=== PATIENT | female | born 1955 | race Caucasian/White ===

== ENCOUNTER 2019-07-06 08:38 | Emergency (ER) | payer OTHER ==
[~2019-07-06] VITALS: Ht 172.7 cm; Wt 82.1 kg
--- OUTSIDE RECORDS SUMMARY | ~2019-07-06 | XMS | Encounter Summary ---
Demographics + + + | Address | [address] | | | [place] [address] | + + + | Home Phone | | + + + | Preferred Language | Unknown | + + + | Marital Status | Unknown | + + + | Yazdanism Affiliation | Unknown | + + + | Race | Unknown | + + + | Ethnic Group | Unknown | + + + Author + + + | Author | [facility] | | | and [place] | + + + | Organization | [facility] | | | and [place] | + + + | Address | Unknown | + + + | Phone | Unavailable | + + + Support + + +---------+ + | Name | Relationship | Address | Phone | + + +---------+ + | Juan Miguel Engum | ECON | Unknown | | + + +---------+ + | Sandeep Sauljennyfer | ECON | Unknown | | + + +---------+ + Care Team Providers + +------+ + | Care Inclusion Specialist Name | Role | Phone | + +------+ + PCP | Unavailable | + +------+ + Encounter Details +--------+ + + + + | Date | Type | Department | Care Team | Description | +--------+ + + + + | 12/27/ | [facility] | [facility] | | | | 1998 | Encounter | MED CTR GENERIC OP | | | | | | CONV DEPT [address] | | | | | | [place], | | | | | | [place] [address] | | | | | | [phone] | | | +--------+ + + + + Social History + +-------+ +--------+------+ | Tobacco Use | Types | Packs/Day | Years | Date | | | | | Used | | + +-------+ +--------+------+ | Never Assessed | | | | | + +-------+ +--------+------+ + + + | Sex Assigned at | Date Recorded | | | | + + + | Not on file | | + + + + + + + | Job Start Date | Occupation | Industry | + + + + | Not on file | Not on file | Not on file | + + + + + + + + | Travel History | Travel Start | Travel End | + + + + + + | No recent travel history available. | + + documented as of this encounter Plan of Treatment Not on filedocumented as of this encounter Visit Diagnoses Not on filedocumented in this encounter"
--- OUTSIDE RECORDS SUMMARY | ~2019-07-06 | XMS | Encounter Summary ---
Demographics + + + | Address | [address] | | | [place] [address] | + + + | Home Phone | | + + + | Preferred Language | Unknown | + + + | Marital Status | | + + + | Holiness Affiliation | Unknown | + + + | Race | White | + + + | Ethnic Group | Not or | + + + Author + + + | Author | [facility] | + + + | Organization | [facility] | + + + | Address | Unknown | + + + | Phone | Unavailable | + + + Support + + +---------+ + | Name | Relationship | Address | Phone | + + +---------+ + | Juan Miguel Engum | ECON | Unknown | | + + +---------+ + Care Team Providers + +------+ + | Care 4 H Youth Development Specialist Name | Role | Phone | + +------+ + PCP | Unavailable | + +------+ + Encounter Details +--------+ + + + + | Date | Type | Department | Care Team | Description | +--------+ + + + + | 12/06/ | ED Progress | [facility] | Addendum, Ed | ED Progress Note | | 2006 | | MEDICINE | Teaching | | | | Note-Transc | | | | | | ribed | | | | +--------+ + + + [...]
--- OUTSIDE RECORDS SUMMARY | ~2019-07-06 | XMS | Clinical Summary ---
Demographics + + + | Address | [address] | | | [place] [address] | + + + | Home Phone | | + + + | Preferred Language | Unknown | + + + | Marital Status | Unknown | + + + | Spiritism Affiliation | Unknown | + + + | Race | Unknown | + + + | Ethnic Group | Unknown | + + + Author + + + | Author | [facility] | | | and [place] | + + + | Organization | [facility] | | | [...] Team Providers + +------+ + | Care Contour Sander Name | Role | Phone | + +------+ + | Blanca Dyer PA-C | PCP | | + +------+ + Allergies Not on File Medications + + + +---------+------+------+-------+ | Medication | Sig | Dispensed | Refills | Star | End | Statu | | | | | | t | Date | s | | | | | | Date | | | + + + +---------+------+------+-------+ | Calcium | Take 600 mg by mouth | | 0 | 12/2 | | Activ | | Carb-Cholecalciferol | daily. | | | 0/20 | | e | | (CALCIUM + D3 PO) | | | | 16 | | | + + + +---------+------+------+-------+ | TURMERIC CURCUMIN | Take 1,000 mg by | | 0 | 12/2 | | Activ | | PO | mouth daily. | | | 0/20 | | e | | | | | | 16 | | | + + + +---------+------+------+-------+ | Multiple | Take 1 tablet by | | 0 | 12/2 | | Activ | | Vitamins-Minerals | mouth daily. | | | 0/20 | | e | | (RA CENTRAL-TRAY | | | | 16 | | | | SENIOR PO) | | | | | | | + + + +---------+------+------+-------+ | fish oil 1,000 mg | Take 300 mg by mouth | | 0 | 12/2 | | Activ | | capsule | 2 (two) times | | | 0/20 | | e | | | daily. | | | 16 | | | + + + +---------+------+------+-------+ | aspirin 81 MG | Take 81 mg by mouth | | 0 | 12/2 | | Activ | | tablet | daily. | | | 0/20 | | e | | | | | | 16 | | | + + + +---------+------+------+-------+ | loratadine | Take 10 mg by mouth | | 0 | 12/2 | | Activ | | (CLARITIN) 10 mg | daily. | | | 0/20 | | e | | tablet | | | | 16 | | | + + + +---------+------+------+-------+ | Cholecalciferol | Take 1 tablet by | | 0 | 12/2 | | Activ | | (VITAMIN D-3) 2000 | mouth daily. | | | 0/20 | | e | | units CAPS | | | | 16 | | | + + + +---------+------+------+-------+ Active Problems + + + | Problem [...] + | Father | | | | + +------+ + + | Mother | | | heart attack | | | | (Age | | | | | 86) | | + +------+ + + | Mother | | | | + +------+ + + | [...] recent travel history available. | + + Last Filed Vital Signs + + + + + | Vital Sign | Reading | Time Taken | Comments | + + + + + | Blood Pressure | 112/60 | 05/19/2018 3:58 PM | | | | | PST | | + + + + + | Pulse | 79 | 05/19/2018 3:58 PM | | | | | PST | | + + + + + | Temperature | - | - | | + + + + + | Respiratory Rate | - | - | | + + + + + | Oxygen Saturation | - | - | | + + + + + | Inhaled Oxygen | - | - | | | Concentration | | | | + + + + + | Weight | 81.6 kg (179 lb 12.8 | 05/19/2018 3:58 PM | | | | oz) | PST | | + + + + + | Height | 171.5 cm (5' 7.5") | 05/19/2018 3:58 PM | | | | | PST | | + + + + + | Body Mass Index | 27.75 | 05/19/2018 3:58 PM | | | | | PST | | + + + + + Plan of Treatment + + + + + | Health Maintenance | Due Date | Last Done | Comments | + + + + + | Hepatitis C | | | | | Screening | 7 | | | + + + + + | Vaccine: | | | | | Dtap/Tdap/Td (1 - | 8 | | | | Tdap) | | | | + + + + + | Cervical Cancer | | | | | Screening (Pap) | 7 | | | + + + + + | Colorectal Cancer | | | | | Screening | 7 | | | | (Colonoscopy) | | | | + + + + + | Vaccine: Zoster (1 | | | | | of 2) | 7 | | | + + + + + | Breast Cancer | | | | | Screening | 2 | | | + + + + + | Vaccine: Influenza | | | | | (#1) | 9 | | | + + + + + Results Not on filefrom Last 3 Months
--- OUTSIDE RECORDS SUMMARY | ~2019-07-06 | XMS | Clinical Summary ---
Demographics + + + | Address | [address] | | | [place] [address] | + + + | Home Phone | | + + + | Preferred Language | Unknown | + + + | Marital Status | Unknown | + + + | Cheondoism Affiliation | Unknown | + + + | Race | Unknown | + + + | Ethnic Group | Unknown | + + + Author + + + | Author | [facility] | | | and [place] | + + + | Organization | [facility] | | [...] Team Providers + +------+ + | Care Soft Hat Binder Name | Role | Phone | + [...]
--- OUTSIDE RECORDS SUMMARY | ~2019-07-06 | XMS | Encounter Summary ---
Demographics + + + | Address | [address] | | | [place] [address] | + + + | Home Phone | | + + + | Preferred Language | Unknown | + + + | Marital Status | Unknown | + + + | Amish Affiliation | Unknown | + + + | Race | Unknown | + + + | Ethnic Group | Unknown | + + + Author + + + | Author | [facility] | | | and [place] | + + + | Organization | [facility] | | | and [...] + +---------+ + | Sandeep Macias | PATRICIA | Unknown | | + + +---------+ + Care Team Providers + +------+ + | Care Production Support Engineer Name | Role | Phone | + +------+ + | Blanca Dyer PA-C | PCP | | + +------+ + Encounter Details +--------+ + + + + | Date | Type | Department | Care Team | Description | +--------+ + + + + | 04/23/ | Orders Only | [facility] | Blanca Dyer, | | | 2016 | | CONVERSION [address] | PA-C [address] | | | | | [address] | [address] [place], | | | | | [place], [place] | [place] [address] | | | | | [address] | [phone] | | | | | [phone] | | | +--------+ + + + [...] Not on filedocumented as of this encounter Procedures + +--------+ + + + | Procedure Name | Priori | Date/Time | Associated Diagnosis | Comments | | | ty | | | | + +--------+ + + + | ECHO INTERPRETATION | Routin | 04/23/2016 | | Results for this | | OF OUTSIDE FILMS | e | 3:03 PM | | procedure are in the | | | | PDT | | results section. | + +--------+ + + + documented in this encounter Results ECHO Interpretation of Outside Films (04/23/2016 3:03 PM PDT) + + | Specimen | + + | | + + + + + | Impressions | Performed At | + + + | 1. See Dictation. TDS. 2. LV dimensions and systolic function | | | grossly NML, Grade 1 diastolic abnormality, LVEF 60-65%. LA/RA/RV | | | grossly NML. 3. Aortic, Mitral, and Tricuspid valves grossly NML, | | | Pulmonic valve not seen well. No /AI. Trace MR, trace TR. 4. | | | No Pericardial effusion. 5. IVC grossly NML, est systolic PAP | | | 18-23mmHg. | | + + + + + + | Narrative | Performed At | + + + | Patient Name: Isabel Dunbar Date of : 1955 | | | Performing Physician: Gautam Faulkner DO | | | | | | INDICATIONS palpitations CONCLUSIONS | | | 1. See Dictation. TDS. 2. LV dimensions and systolic function | | | grossly NML, Grade 1 diastolic abnormality, LVEF 60-65%. LA/RA/RV | | | grossly NML. 3. Aortic, Mitral, and Tricuspid valves grossly NML, | | | Pulmonic valve not seen well. No /AI. Trace MR, trace TR. 4. | | | No Pericardial effusion. 5. IVC grossly NML, est systolic PAP | | | 18-23mmHg. FINDINGS -------- ECG rhythm: Sinus rhythm. Study: | | | This was a technically difficult study with suboptimal views. Left | | | Ventricle: Overall left ventricular systolic function is normal with, | | | an EF between 60 - 65 %. Left Ventricle: The left ventricle cavity | | | size is normal. Left Ventricle: Left ventricular wall thickness is | | | normal. Left Ventricle: The diastolic filling pattern indicates | | | impaired relaxation consistent with mild dysfunction (Grade I). Right | | | Ventricle: The right ventricle is normal in size. Right Ventricle: | | | The right ventricular systolic function is normal. Left Atrium: The | | | left atrium is normal in size. Right Atrium: The right atrium is | | | normal in size. Aortic Valve: The aortic valve is trileaflet and | | | appears structurally normal. Aortic Valve: There is no evidence of | | | aortic regurgitation. Aortic Valve: There is no evidence of aortic | | | stenosis. Mitral Valve: The mitral valve is normal. Mitral Valve: | | | There is trace mitral regurgitation. Tricuspid Valve: The tricuspid | | | valve appears structurally normal. Tricuspid Valve: Trace tricuspid | | | regurgitation present. Pulmonic Valve: The pulmonic valve was not | | | well visualized. Pericardium: There is no pericardial effusion. | | | IVC/Hepatic Veins: The IVC is normal size (1.5-2.5cm) and collapses | | | >50% with sniff, consistent with central venous pressures of 5-10mmHg. | | | MEASUREMENTS Night Nurse: MARIBELL Authenticated | | | by: Gautam Faulkner DO Report Date/Time: -- | | + + + + + | Procedure Note | + + | Michael Jenkins Conversion - 02/10/2019 10:39 PM PDT Patient Name: Tim Dunbar of | | : 1955 Performing Physician: Gautam Faulkner | | DO INDICATIONS p | | alpitations CONCLUSIONS 1. See Dictation. TDS. 2. LV dimensions and systolic | | function grossly NML, Grade 1 diastolic abnormality, LVEF 60-65%. LA/RA/RV grossly NML. | | 3. Aortic, Mitral, and Tricuspid valves grossly NML, Pulmonic valve not seen well. No | | /AI. Trace MR, trace TR. 4. No Pericardial effusion. 5. IVC grossly NML, est systolic | | PAP 18-23mmHg. FINDINGS--------ECG rhythm: Sinus rhythm.Study: This was a technically | | difficult study with suboptimal views.Left Ventricle: Overall left ventricular systolic | | function is normal with, an EF between 60 - 65 %.Left Ventricle: The left ventricle | | cavity size is normal.Left Ventricle: Left ventricular wall thickness is normal.Left | | Ventricle: The diastolic filling pattern indicates impaired relaxation consistent with | | mild dysfunction (Grade I).Right Ventricle: The right ventricle is normal in size.Right | | Ventricle: The right ventricular systolic function is normal.Left Atrium: The left | | atrium is normal in size.Right Atrium: The right atrium is normal in size.Aortic Valve: | | The aortic valve is trileaflet and appears structurally normal.Aortic Valve: There is no | | evidence of aortic regurgitation.Aortic Valve: There is no evidence of aortic | | stenosis.Mitral Valve: The mitral valve is normal.Mitral Valve: There is trace mitral | | regurgitation.Tricuspid Valve: The tricuspid valve appears structurally normal.Tricuspid | | Valve: Trace tricuspid regurgitation present.Pulmonic Valve: The pulmonic valve was not | | well visualized.Pericardium: There is no pericardial effusion.IVC/Hepatic Veins: The | | IVC is normal size (1.5-2.5cm) and collapses >50% with sniff, consistent with central | | venous pressures of 5-10mmHg. MEASUREMENTS Night Nurse: NINOSKAuthenticated by: | | Gautam Davila Date/Time: -- IMPRESSION: 1. See Dictation. TDS. 2. LV | | dimensions and systolic function grossly NML, Grade 1 diastolic abnormality, LVEF | | 60-65%. LA/RA/RV grossly NML. 3. Aortic, Mitral, and Tricuspid valves grossly NML, | | Pulmonic valve not seen well. No /AI. Trace MR, trace TR. 4. No Pericardial | | effusion. 5. IVC grossly NML, est systolic PAP 18-23mmHg. | |Left Atrium: The left atrium is normal in size. | |Right Atrium: The right atrium is normal in size. | |Aortic Valve: The aortic valve is trileaflet and appears structurally normal. | |Aortic Valve: There is no evidence of aortic regurgitation. | |Aortic Valve: There is no evidence of aortic stenosis. | |Mitral Valve: The mitral valve is normal. | |Mitral Valve: There is trace mitral regurgitation. | |Tricuspid Valve: The tricuspid valve appears structurally normal. | |Tricuspid Valve: Trace tricuspid regurgitation present. | |Pulmonic Valve: The pulmonic valve was not well visualized. | |Pericardium: There is no pericardial effusion. | |IVC/Hepatic Veins: The IVC is normal size (1.5-2.5cm) and collapses >50% with sniff, consis tent with central venous pressures of 5-10mmHg. | | | |MEASUREMENTS | | | | | |Night Nurse: | |Authenticated by: Gautam Faulkner DO | |Report Date/Time: -- | | | |IMPRESSION: | |1. See Dictation. TDS. 2. LV dimensions and systolic function grossly NML, Grade 1 diastol ic abnormality, LVEF 60-65%. LA/RA/RV grossly NML. 3. Aortic, Mitral, and Tricuspid valves grossly NML, Pulmonic valve not seen | |well. No /AI. Trace MR, trace | |TR. 4. No Pericardial effusion. 5. IVC grossly NML, est systolic PAP 18-23mmHg. | + + documented in this encounter Visit Diagnoses Not on filedocumented in this encounter"
--- OUTSIDE RECORDS SUMMARY | ~2019-07-06 | XMS | Encounter Summary ---
Demographics + + + | Address | [address] | | | [place] [address] | + + + | Home Phone | | + + + | Preferred Language | Unknown | + + + | Marital Status | | + + + | Sabianism Affiliation | Unknown | + + + | Race | White | + + + | Ethnic Group | Not or | + + + Author + + + | Author | [facility] | + + + | Organization | [facility] | + + + | Address | Unknown | + + + | Phone | Unavailable | + + + Support + + +---------+ + | Name | Relationship | Address | Phone | + + +---------+ + | Juan Miguel Engum | ECON | Unknown | | + + +---------+ + Care Team Providers + +------+ + | Care Regulatory Compliance Officer Name | Role | Phone | + +------+ + PCP | Unavailable | + +------+ + Encounter Details +--------+ + + + + | Date | Type | Department | Care Team | Description | +--------+ + + + + | 11/13/ | Hospital | LAB SURGICAL | | | | 2010 | Encounter | PATHOLOGY [address] | | | | [address] | | | | | | [place], [place] | | | | | | [address] | | | +--------+ + + + [...]
--- OUTSIDE RECORDS SUMMARY | ~2019-07-06 | XMS | Encounter Summary ---
Demographics + + + | Address | [address] | | | [place] [address] | + + + | Home Phone | | + + + | Preferred Language | Unknown | + + + | Marital Status | | + + + | Cheondoism Affiliation | Unknown | + + + | Race | White | + + + | Ethnic Group | Not or | + + + Author + + + | Author | [facility] | + + + | Organization | [facility] | + + + | Address | Unknown | + + + | Phone | Unavailable | + + + Support + + +---------+ + | Name | Relationship | Address | Phone | + + +---------+ + | Juan Miguel Engum | ECON | Unknown | | + + +---------+ + Care Team Providers + +------+ + | Care Integrated Specialist Name | Role | Phone | [...] [address] | | | | | | [place], [place] | | | | | | [phone] | | | +--------+ + + + [...]
--- OUTSIDE RECORDS SUMMARY | ~2019-07-06 | XMS | Encounter Summary ---
Demographics + + + | Address | [address] | | | [place] [address] | + + + | Home Phone | | + + + | Preferred Language | Unknown | + + + | Marital Status | | + + + | Confucianist Affiliation | Unknown | + + + [...] Team Providers + +------+ + | Care Mining Support Worker Name | Role | Phone | + [...]
--- OUTSIDE RECORDS SUMMARY | ~2019-07-06 | XMS | Encounter Summary ---
Demographics + + + | Address | [address] | | | [place] [address] | + + + | Home Phone | | + + + | Preferred Language | Unknown | + + + | Marital Status | | + + + | Hinduism Affiliation | Unknown | + + + | Race | White | + + + | Ethnic Group | Not or | + + + Author + + + | Author | [facility] | + + + | Organization | [facility] | + + + | Address | Unknown | + + + | Phone | Unavailable | + + + Support + + +---------+ + | Name | Relationship | Address | Phone | + + +---------+ + | Juan Miguel Engum | ECON | Unknown | | + + +---------+ + Care Team Providers + +------+ + | Care Skid Wrapper Name | Role | Phone | + +------+ + PCP | Unavailable | + +------+ + Encounter Details +--------+ + + + + | Date | Type | Department | Care Team | Description | +--------+ + + + + | 11/13/ | Results | NON-[facility] | Arnie Baltazar, | | | 2010 | Only | Department | [facility] | | | | | | CLINIC DERMATOLOGY | | | | | | [address] | | | | | | [place] | | | | | | [address] | | | | | | | | +--------+ + + [...] | + +--------+ + + + | DERMATOPATHOLOGY(CON | Routin | 11/13/2010 | | Results for this | | SULT) | e | | | procedure are in the | | | | | | results section. | + +--------+ + + + documented in this encounter Results DERMATOPATHOLOGY(CONSULT) (11/13/2010) + + + + + + | Component | Value | Ref Range | Performed | Pathologist | | | | | At | Signature | + + + + + + | DERMATOPATH | THIS IS AN ADDENDUM | | [facility] | | | (CONSULT) | REPORT SOURCE OF | | DERMATOPATH | | | | SPECIMEN:A CONSULTATION | | OLOGY | | | | CLINICAL | | | | | | DESCRIPTION:Norma, Rt. | | | | | | medial abdomen, 5x3mm | | | | | | pearly kong papule, DF | | | | | | vs. BCC, densecollagen | | | | | | with fibroblast like | | | | | | cells, DF vs. cicatrix.1 | | | | | | outside slide | | | | | | ([id number]) | | | | | | received. Dear | | | | | | Delaney: | | | | | | Thank you for asking | | | | | | us to review Isabel | | | | | | Power's right medial | | | | | | abdomenbiopsy where | | | | | | there is a small, | | | | | | slightly domed papule | | | | | | characterized by | | | | | | aproliferation of cells | | | | | | with spindled nuclei | | | | | | distributed between | | | | | | thickenedcollagen | | | | | | bundles in the upper | | | | | | dermis. Some of the | | | | | | cells contain | | | | | | brownpigment within | | | | | | their cytoplasm. Many of | | | | | | the spindled nuclei are | | | | | | plump andthe fibers are | | | | | | haphazardly arranged. 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 | | | | | | Precise identification | | | | | | of the brown pigment | | | | | | (melanin versus | | | | | | hemosiderin) | | | | | | ischallenging, the | | | | | | differential including | | | | | | BLUE NEVUS also | | | | | | suggested by theclinical | | | | | | presentation ("kong | | | | | | papule") versus an | | | | | | unconventionalDERMATOFIB | | | | | | VIRY. Special stains may | | | | | | be helpful in further | | | | | | distinguishingbetween | | | | | | these conditions where | | | | | | the fibrous | | | | | | proliferation extends to | | | | | | thesurgical margins. | | | | | | Thank you for | | | | | | referring this | | | | | | consultation.1 slide | | | | | | ([id number]) | | | | | | returned to Dr. Baltazar. | | | | | | CRW:emr11/28/10 | | | | | | ADDENDUM:Special | | | | | | stains for melanin | | | | | | (Jose Elias-[place]) stain | | | | | | positive the brown | | | | | | dermalpigment, while | | | | | | special stains for iron | | | | | | / hemosiderin (Perls) | | | | | | are negative.Antibodies | | | | | | to Melan-a stain | | | | | | positive the spindled | | | | | | cells. The findings | | | | | | areconsonant with BLUE | | | | | | NEVUS which extends to | | | | | | the surgical margins. | | | | | | 4 slides and 1 block | | | | | | returned to Dr. Baltazar. | | | | | | CRW:mm12/03/10 | | | | | | My electronic | | | | | | signature indicates that | | | | | | I have personally | | | | | | reviewed alldiagnostic | | | | | | slides, the gross and/or | | | | | | microscopic portion of | | | | | | thisreport and | | | | | | formulated the final | | | | | | diagnosis. | | | | | | Rendering Diagnostician: | | | | | | Hipolito Garcias Jr., | | | | | | | | | | | | TobiasPathologistNamani | | | | | | marycruz Signed 12/03/2010 | | | | | | 3:28PM | | | | + + + + + + + + | Specimen | + + | | + + + + + + + | Performing | Address | City/State/Zipcode | Phone Number | | Organization | | | | + + + + + | [facility] | [address] | [place] [address] | | | DERMATOPATHOLOGY | Neil Morocho | | | + + + + + documented in this encounter Visit Diagnoses Not on filedocumented in this encounter
--- OUTSIDE RECORDS SUMMARY | ~2019-07-06 | XMS | Encounter Summary ---
Demographics + + + | Address | [address] | | | [place] [address] | + + + | Home Phone | | + + + | Preferred Language | Unknown | + + + | Marital Status | | + + + | Gnosticist Affiliation | Unknown | + + + | Race | White | + + + | Ethnic Group | Not or | + + + Author + + + | Author | [facility] | + + + | Organization | [facility] | + + + | Address | Unknown | + + + | Phone | Unavailable | + + + Support + + +---------+ + | Name | Relationship | Address | Phone | + + +---------+ + | Juan Miguel Engum | ECON | Unknown | | + + +---------+ + Care Team Providers + +------+ + | Care Documentation Billing Clerk Name | Role | Phone | + +------+ + PCP | Unavailable | + +------+ + Encounter Details +--------+ + + + + | Date | Type | Department | Care Team | Description | +--------+ + + + + | 05/28/ | Hospital | Dermatopathology | | | | 2017 | Encounter | [address] | | | | | | Mailcode: CH16D | | | | | | [facility] | | | | | | and Healing, | | | | | | [address] | | | | | | [place], [place] | | | | | | [address] | | | | | | [phone] | | | +--------+ + + + [...] | + +--------+ + + + | DERM PATHOLOGY | Routin | 05/28/2017 | Other specified | Results for this | | | e | | disorders of the | procedure are in the | | | | | skin and | results section. | | | | | subcutaneous tissue | | | | | | Non-pressure | | | | | | chronic ulcer of | | | | | | skin of other sites | | | | | | limited to breakdown | | | | | | of skin (HCC) | | | | | | Changes in skin | | | | | | texture | | + +--------+ + + + documented in this encounter Results DERM PATHOLOGY (05/28/2017) + + + + + + | Component | Value | Ref Range | Performed | Pathologist | | | | | At | Signature | + + + + + + | DERMATOPATH | SOURCE OF SPECIMEN:A Lt. | | [facility] | | | OLOGY(WET | anterior scalp vertex, | | DERMATOPATH | | | MNT) | shave biopsy | | OLOGY | | | | CLINICAL | | | | | | DESCRIPTION:6x6mm | | | | | | erythematous excoriated | | | | | | papule; r/o inflamed SK | | | | | | vs other. GROSS | | | | | | DESCRIPTION:Received in | | | | | | formalin is a specimen | | | | | | labeled Isabel Dunbar:A: | | | | | | Specimen is labeled "L | | | | | | anterior scalp vertex" | | | | | | and consists of | | | | | | anirregular shave of | | | | | | popular [id number] | | | | | | skin, [id number]. The | | | | | | surgicalmargin is inked | | | | | | blue; the tissue is | | | | | | bisected, and entirely | | | | | | submitted crow A1. | | | | | | MICROSCOPIC | | | | | | DESCRIPTION:There is | | | | | | crust overlying | | | | | | irregular epidermal | | | | | | hyperplasia, with | | | | | | focalulceration. | | | | | | Beneath, there is | | | | | | fibrosis, and solar | | | | | | elastosis with | | | | | | amoderately dense | | | | | | lymphocytic infiltrate. | | | | | | | | | | | | DIAGNOSIS:EPIDERMAL | | | | | | HYPERPLASIA WITH | | | | | | ULCERATION AND CRUST. | | | | | | NOTE: Secondary | | | | | | changes predominate, | | | | | | suggesting external | | | | | | trauma, with muchof the | | | | | | findings suggestive of | | | | | | lichen simplex | | | | | | chronicus. | | | | | | Traumatizedseborrheic | | | | | | keratosis or solar | | | | | | keratosis is difficult | | | | | | to exclude. | | | | | | Clinicalcorrelation is | | | | | | recommended. | | | | | | KPW:sw06/02/17 My | | | | | | electronic signature | | | | | | indicates that I have | | | | | | personally reviewed | | | | | | alldiagnostic slides, | | | | | | the gross and/or | | | | | | microscopic portion of | | | | | | thisreport and | | | | | | formulated the final | | | | | | diagnosis. | | | | | | Electronically signed | | | | | | by: Chevy Garcias | | | | | | M.TaviaPathologistDate | | | | | | Completed: 06/02/2017 | | | | | | 5:44PM | | | | + + + + + + + + | Specimen | + + | | + + + + + | Narrative | Performed At | + + + | | | + + + + + + + + | Performing | Address | City/State/Zipcode | Phone Number | | Organization | | | | + + + + + | [facility] | Mailcode CH5D, [address] | [place] [address] | | | DERMATOPATHOLOGY | [address] | | | + + + + + documented in this encounter Visit Diagnoses + + | Diagnosis | + + | Other specified disorders of the skin and subcutaneous tissue | + + | 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
--- OUTSIDE RECORDS SUMMARY | ~2019-07-06 | XMS | Encounter Summary ---
Demographics + + + | Address | [address] | | | [place] [address] | + + + | Home Phone | | + + + | Preferred Language | Unknown | + + + | Marital Status | | + + + | Sikh Affiliation | Unknown | + + + | Race | White | + + + | Ethnic Group | Not or | + + + Author + + + | Author | [facility] | + + + | Organization | [facility] | + + + | Address | Unknown | + + + | Phone | Unavailable | + + + Support + + +---------+ + | Name | Relationship | Address | Phone | + + +---------+ + | Juan Miguel Engum | ECON | Unknown | | + + +---------+ + Care Team Providers + +------+ + | Care Blower Room Attendant Name | Role | Phone | + [...] [facility] | | | | | | [facility] | | | | | | and Healing, | | | | | | [address] | | | | | | [place], [place] | | | | | | [address] | | | | | | [phone] | | | +--------+ + + + [...] | | | | | | popular [id number] | | | | | | skin, [id number]. The | | | | | | [...] + + | [facility] | Mailcode CH5D, [address] | [place] [address] | | | DERMATOPATHOLOGY | [address] [...]
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
--- OUTSIDE RECORDS SUMMARY | ~2019-07-06 | XMS | Encounter Summary ---
Demographics + + + | Address | [address] | | | [place] [address] | + + + | Home Phone | | + + + | Preferred Language | Unknown | + + + | Marital Status | | + + + | Adventist Affiliation | Unknown | + + + | Race | White | + + + | Ethnic Group | Not or | + + + Author + + + | Author | [facility] | + + + | Organization | [facility] | + + + | Address | Unknown | + + + | Phone | Unavailable | + + + Support + + +---------+ + | Name | Relationship | Address | Phone | + + +---------+ + | Juan Miguel Engum | ECON | Unknown | | + + +---------+ + Care Team Providers + +------+ + | Care Parachute Harness Rigger Name | Role | Phone | + +------+ + PCP | Unavailable | + +------+ + Encounter Details +--------+ + + + + | Date | Type | Department | Care Team | Description | +--------+ + + + + | 12/06/ | Hospital | Registration 3181 | Tony, | | | 2006 | Activity | MARISA Salazar | MD [address] | | | | | [address] Mailcode: [id number] | [address] | | | | | [place], [place] | [place], [place] | | | | | [address] | [address] | | | | | [phone] | [phone] | | | | | | | [...] | | + +---------+ + + | [facility] DEPARTMENT OF | | | | | [...]
--- OUTSIDE RECORDS SUMMARY | ~2019-07-06 | XMS | Clinical Summary ---
Demographics + + + | Address | [address] | | | [place] [address] | + + + | Home Phone | | + + + | Preferred Language | Unknown | + + + | Marital Status | | + + + | Anabaptist Affiliation | Unknown | + + + | Race | White | + + + | Ethnic Group | Not or | + + + Author + + + | Author | [facility] | + + + | Organization | [facility] | + + + | Address | Unknown | + + + | Phone | Unavailable | + + + Support + + +---------+ + | Name | Relationship | Address | Phone | + + +---------+ + | Juan Miguel Staples | ECON | Unknown | | + + +---------+ + Care Team Providers + +------+ + | Care Jacker Feeder Name | Role | Phone | + +------+ + PCP | Unavailable | + +------+ + Source Comments KINGA is fully live on both [facility] and [facility] Allergies Not on File Medications Not on file Active Problems Not on file Social History + +-------+ +--------+------+ | Tobacco [...] | + + Last Filed Vital Signs Not on file Plan of Treatment + + + + + | Health Maintenance | Due Date | Last Done | Comments | + + + + + | Influenza (Flu) | | | | | vaccination (#1) | 9 | | | + + + + + | Pneumococcal | Aged Out | | No longer eligible | | vaccination | | | based on patient's | | | | | age to complete this | | | | | topic | + + + + + Results Not on filefrom Last 3 Months Insurance + +--------+ +--------+ + +------+ | Payer | Benefi | Subscriber | Effect | Phone | Address | Type | | | t Plan | ID | [id number] | | | | | | / | | Dates | | | | | | Group | | | | | | + +--------+ +--------+ + +------+ | [employer] | MODA | [phone] | | [phone] | [address] | PPO | | | [place] | | [phone] [id number] | | | | [place] | | lissy | | [place], | | | | [place] | | | | [place] [address] | | + +--------+ +--------+ + +------+ + +--------+ +--------+ + + | Guarantor Name | Accoun | Relation to | Date | Phone | Billing Address | | | t Type | Patient | of | | | | | | | | | | + +--------+ +--------+ + + | Isabel Dunbar | Person | Self | [birth year] [address] | | al/Fam | | 1955 | | [place] [address] | | | hsaheed | | | 8 (Home) | | + +--------+ +--------+ + + | Isabel Dunbar | Third | Self | [birth year] | | [address] | | | [employer] [place] | | 1955 | | [place] [address] | | | Liabil | | | 8 (Home) | | | | ity | | | | | + +--------+ +--------+ + +"
--- OUTSIDE RECORDS SUMMARY | ~2019-07-06 | XMS | Encounter Summary ---
Demographics + + + | Address | [address] | | | [place] [address] | + + + | Home Phone | | + + + | Preferred Language | Unknown | + + + | Marital Status | | + + + | Jain Affiliation | Unknown | + + + | Race | White | + + + | Ethnic Group | Not or | + + + Author + + + | Author | [facility] | + + + | Organization | [facility] | + + + | Address | Unknown | + + + | Phone | Unavailable | + + + Support + + +---------+ + | Name | Relationship | Address | Phone | + + +---------+ + | Juan Miguel Engum | ECON | Unknown | | + + +---------+ + Care Team Providers + +------+ + | Care Campus Police Officer Name | Role | Phone | [...]
--- OUTSIDE RECORDS SUMMARY | ~2019-07-06 | XMS | Clinical Summary ---
Demographics + + + | Address | [address] | | | [place] [address] | + + + | Home Phone | | + + + | Preferred Language | Unknown | + + + | Marital Status | | + + + | Baptist Affiliation | Unknown | + + + | Race | Unknown | + + + | Ethnic Group | Unknown | + + + Author + + + | Author | [facility] (Historical as of | | | 02-05-19) | + + + | Organization | [facility] (Historical as of | | | 02-05-19) [...] Team Providers + +------+ + | Care Mailing Machine Operator Name | Role | Phone | [...] | [employer] | ODS | [id number] | | | | | | HEALTH | | | | | | | PLAN | | | | | + +--------+ +------+-------+---------+ | HEALTHY OPTIONS | HEALTH | [id number] | HMO | | | | MEDICAID [...] Self | [birth year] | Home: | [address] | | | al/Fam | | [phone] | [phone] | [place] [address] | | | shaheed | | | [phone] | | + +--------+ +--------+ + +
--- OUTSIDE RECORDS SUMMARY | ~2019-07-06 | XMS | Encounter Summary ---
Demographics + + + | Address | [address] | | | [place] [address] | + + + | Home Phone | | + + + | Preferred Language | Unknown | + + + | Marital Status | | + + + | Taoism Affiliation | Unknown | + + + | Race | White | + + + | Ethnic Group | Not or | + + + Author + + + | Author | [facility] | + + + | Organization | [facility] | + + + | Address | Unknown | + + + | Phone | Unavailable | + + + Support + + +---------+ + | Name | Relationship | Address | Phone | + + +---------+ + | Juan Miguel Engum | ECON | Unknown | | + + +---------+ + Care Team Providers + +------+ + | Care Drafter (Cad) Electrical Name | Role | Phone | + [...]
--- OUTSIDE RECORDS SUMMARY | ~2019-07-06 | XMS | Encounter Summary ---
Demographics + + + | Address | [address] | | | [place] [address] | + + + | Home Phone [...] + + + | Author | [facility] | | | and [place] | + + + | Organization | [facility] | | | [...] Team Providers + +------+ + | Care Audiovisual Production Specialist Name | Role | Phone | + +------+ + PCP | Unavailable | + +------+ + Encounter Details +--------+ + + + + | Date | Type | Department | Care Team | Description | +--------+ + + + + | 12/27/ | [facility] | [facility] | | | | 1998 | Encounter | MED CTR GENERIC OP | | | | | | CONV DEPT [address] | | | | | | [place], | | | | | | [place] [address] | | | | | | [phone] | | | +--------+ + + + [...]
--- OUTSIDE RECORDS SUMMARY | ~2019-07-06 | XMS | Encounter Summary ---
Demographics + + + | Address | [address] | | | [place] [address] | + + + | Home Phone [...] Team Providers + +------+ + | Care City Controller Name | Role | Phone | + [...]
--- OUTSIDE RECORDS SUMMARY | ~2019-07-06 | XMS | Encounter Summary ---
Demographics + + + | Address | [address] | | | [place] [address] | + + + | Home Phone | | + + + | Preferred Language | Unknown | + + + | Marital Status | | + + + | Zoroastrianism Affiliation | Unknown | + + + | Race | White | + + + | Ethnic Group | Not or | + + + Author + + + | Author | [facility] | + + + | Organization | [facility] | + + + | Address | Unknown | + + + | Phone | Unavailable | + + + Support + + +---------+ + | Name | Relationship | Address | Phone | + + +---------+ + | Juan Miguel Engum | ECON | Unknown | | + + +---------+ + Care Team Providers + +------+ + | Care Research Associate Professor Name | Role | Phone | + [...]
--- OUTSIDE RECORDS SUMMARY | ~2019-07-06 | XMS | Encounter Summary ---
Demographics + + + | Address | [address] | | | [place] [address] | + + + | Home Phone | | + + + | Preferred Language | Unknown | + + + | Marital Status | Unknown | + + + | Confucianism Affiliation | Unknown | + + + | Race | Unknown | + + + | Ethnic Group | Unknown | + + + Author + + + | Author | [facility] | | | and [place] | + + + | Organization | [facility] | | | and [...] Team Providers + +------+ + | Care Cable Installer Repairer Name | Role | Phone | [...] Provider Unknown | | | | | [place], [place] | [phone] | | | | | [phone] | (Fax) | | | | | [phone] | | | +--------+ + + + [...]
--- OUTSIDE RECORDS SUMMARY | ~2019-07-06 | XMS | Clinical Summary ---
Demographics + + + | Address | [address] | | | [place] [address] | + + + | Home Phone | | + + + | Preferred Language | Unknown | + + + | Marital Status | | + + + | Jewish Affiliation | Unknown | + + + | Race | Unknown | + + + | Ethnic Group | Unknown | + + + Author + + + | Author | [email or web address] (Historical as of | | | 02-05-19) | + + + | Organization | [email or web address] (Historical as of | | | 02-05-19) [...] Team Providers + +------+ + | Care Email Marketing Specialist Name | Role | Phone | [...] | [employer] PLAN | ODS | [id number] | | | | | | HEALTH | | | | | | | PLAN | | | | | + +--------+ +------+-------+---------+ | HEALTHY OPTIONS | HEALTH | [id number] | HMO | | | | MEDICAID [...] Self | [birth year] Home: | [address] | | | al/Fam | | [phone] | [phone] | [place] [address] | | | shaheed | | | [phone] | | + +--------+ +--------+ + +
--- OUTSIDE RECORDS SUMMARY | ~2019-07-06 | XMS | Encounter Summary ---
Demographics + + + | Address | [address] | | | [place] [address] | + + + | Home Phone | | + + + | Preferred Language | Unknown | + + + | Marital Status | Unknown | + + + | Anabaptism Affiliation | Unknown | + + + | Race | Unknown | + + + | Ethnic Group | Unknown | + + + Author + + + | Author | [facility] | | | and [place] | + + + | Organization | [facility] | | | [...] Team Providers + +------+ + | Care Potato Chip Maker Name | Role | Phone | + [...] [address], | | | | | [place], [place] | [place] [address] | | | | | [address] | [phone] | | | | | [phone] | | | +--------+ + + + [...] pressures of 5-10mmHg. | | | MEASUREMENTS Adjunct Business Instructor: MARIBELL Authenticated | | | by: Gautam [...] | | venous pressures of 5-10mmHg. MEASUREMENTS Adjunct Business Instructor: NINOSKAuthenticated by: | | Gautam Davila Date/Time: [...] | |MEASUREMENTS | | | | | |Adjunct Business Instructor: | |Authenticated by: Gautam Faulkner DO | [...]
--- OUTSIDE RECORDS SUMMARY | ~2019-07-06 | XMS | Encounter Summary ---
Demographics + + + | Address | [address] | | | [place] [address] | + + + | Home Phone | | + + + | Preferred Language | Unknown | + + + | Marital Status | Unknown | + + + | Baptism Affiliation | Unknown | + + + | Race | Unknown | + + + | Ethnic Group | Unknown | + + + Author + + + | Author | [facility] | | | and [place] | + + + | Organization | [facility] | | | and [...] Providers + +------+ + | Care Commercial Loan Specialist Name | Role | Phone | [...] Provider Unknown | | | | | [place], [place] | [phone] | | | | | [phone] | (Fax) | | | | | [phone] | | | +--------+ + + + [...]
--- OUTSIDE RECORDS SUMMARY | ~2019-07-06 | XMS | Clinical Summary ---
Demographics + + + | Address | [address] | | | [place] [address] | + + + | Home Phone | | + + + | Preferred Language | Unknown | + + + | Marital Status | | + + + | Scientologist Affiliation | Unknown | + + + [...] Team Providers + +------+ + | Care Software Design Manager Name | Role | Phone | + +------+ + PCP | Unavailable | + +------+ + Source Comments [facility] is fully live on both [facility] Ambulatory and [facility] InPatient.[facility] Allergies Not on File Medications Not on [...] OEBB | MODA | [phone] | | [phone] | [address] | [address] | | | [address] | | [phone] | [phone] | | | | [address] | | lissy | | [place], | | | | [place] | | | | [place] [address] | | + +--------+ +--------+ + +------+ [...] | | 1955 | | [place] [address] | | | shaheed | | | 8 (Home) | | + +--------+ +--------+ + + | Isabel Dunbar | Third | Self | [birth year] | [address] | | | [place] | | 1955 | | [place] [address] | | | Liabil | | | 8 (Home) | | | | ity | | | | | + +--------+ +--------+ + +"
--- OUTSIDE RECORDS SUMMARY | ~2019-07-06 | XMS | Encounter Summary ---
Demographics + + + | Address | [address] | | | [place] [address] | + + + | Home Phone | | + + + | Preferred Language | Unknown | + + + | Marital Status | | + + + | Christianity Affiliation | Unknown | + + + | Race | White | + + + | Ethnic Group | Not or | + + + Author + + + | Author | [facility] | + + + | Organization | [facility] | + + + | Address | Unknown | + + + | Phone | Unavailable | + + + Support + + +---------+ + | Name | Relationship | Address | Phone | + + +---------+ + | Juan Miguel Engum | ECON | Unknown | | + + +---------+ + Care Team Providers + +------+ + | Care Fixer Supervisor Name | Role | Phone | [...] [place] | | | | | | [address] | | | | | | | [...] slide | | | | | | ([id number]) | | | | | | received. [...] slide | | | | | | ([id number]) | | | | | | returned [...] + + | [facility] | [address] | [place] [address] | | | DERMATOPATHOLOGY | Neil Morocho | | | + + + + + documented in this encounter Visit Diagnoses Not on filedocumented in this encounter
--- OUTSIDE RECORDS SUMMARY | ~2019-07-06 | XMS | Encounter Summary ---
Demographics + + + | Address | [address] | | | [place] [address] | + + + | Home Phone | | + + + | Preferred Language | Unknown | + + + | Marital Status | | + + + | Quaker Affiliation | Unknown | + + + | Race | White | + + + | Ethnic Group | Not or | + + + Author + + + | Author | [facility] | + + + | Organization | [facility] | + + + | Address | Unknown | + + + | Phone | Unavailable | + + + Support + + +---------+ + | Name | Relationship | Address | Phone | + + +---------+ + | Juan Miguel Engum | ECON | Unknown | | + + +---------+ + Care Team Providers + +------+ + | Care Service Center Supervisor Name | Role | Phone | [...]
--- OUTSIDE RECORDS SUMMARY | ~2019-07-06 | XMS | Encounter Summary ---
Demographics + + + | Address | [address] | | | [place] [address] | + + + | Home Phone [...] + + + | Author | [facility] | + + + | Organization | [facility] | + + + | Address | Unknown | + + + | Phone | Unavailable | + + + Support + + +---------+ + | Name | Relationship | Address | Phone | + + +---------+ + | Juan Miguel Engum | ECON | Unknown | | + + +---------+ + Care Team Providers + +------+ + | Care Oil Pump Station Operator Chief Name | Role | Phone | + [...]
[~2019-07-06 08:38] MED LIST: CALCIUM + VITA1 EACH PO; COLACE100 MG PO; DAILY MULTIPLE1 EACH PO; FISH OIL 1,0001 EAC6 PO; LORATADINE10 MG PO; OMEPRAZOLE20 MG PO; PERCOCET 5-3251 EACH PO; PROBIOTIC1 EAC1 PO; VITAMIN D2000 UNI1 PO; WELLBUTRIN SR100 MG PO; ZOFRAN4 MG PO
[2019-07-06] MEDS ORDERED: TURMERIC 500 M1 EACH PO (09:07)
[2019-07-06] MEDS ORDERED: ONDANSETRON ODT8 MG PO (13:26)
[2019-07-07] MEDS ORDERED: CALCIUM 500 +1 EAC2 PO (17:57)
== END 2019-07-06 13:38 | disposition home or self-care (01) ==
LOC: ED 08:38
DX: R10.11 Right upper quadrant pain (principal); B34.9 Viral infection, unspecified; Z79.899 Other long term (current) drug therapy
CPT/HCPCS: 71046; 76705; 80053; 81001; 83605; 85025; 87502; 96360; 96361; 99284-25; A9270; J7030

== ENCOUNTER 2019-07-07 10:54 | Inpatient (IN) | payer OTHER ==
[~2019-07-07] VITALS: Ht 172.7 cm; Wt 89.8 kg
--- OUTSIDE RECORDS SUMMARY | ~2019-07-07 | XMS | Clinical Summary ---
Demographics + + + | Address | [address] | | | [place] [address] | + + + | Home Phone | | + + + | Preferred Language | Unknown | + + + | Marital Status | | + + + | Synagogue Affiliation | Unknown | + + + | Race | Unknown | + + + | Ethnic Group | Unknown | + + + Author + + + | Author | [facility] (Historical as of | | | 02-05-19) | + + + | Organization | [facility] (Historical as of | | | 02-05-19) | + + + | Address | Unknown | + + + | Phone | Unavailable | + + + Support + + +---------+ + | Name | Relationship | Address | Phone | + + +---------+ + | Juan Miguel Staples | PATRICIA | Unknown | | + + +---------+ + | Sandeep Macias | ECON | Unknown | | + + +---------+ + Care Team Providers + +------+ + | Care Receiving Supervisor Name | Role | Phone | + +------+ + | Blanca Dyer PA-C | PP | Unavailable | + +------+ + Allergies Not on File Current Medications + + +-------+---------+------+------+-------+ | Prescription | Sig. | Disp. | Refills | Star | End | Statu | | | | | | t | Date | s | | | | | | Date | | | + + +-------+---------+------+------+-------+ | Calcium | Take 600 mg by mouth | | | | | Activ | | Carb-Cholecalciferol | daily. | | | | | e | | (CALCIUM + D3 PO) | | | | | | | + + +-------+---------+------+------+-------+ | fish oil omega-3 | Take 300 mg by mouth | | | | | Activ | | fatty acids 1000 MG | 2 (two) times | | | | | e | | capsule | daily. | | | | | | + + +-------+---------+------+------+-------+ | aspirin 81 MG | Take 81 mg by mouth | | | | | Activ | | tablet | daily. | | | | | e | + + +-------+---------+------+------+-------+ | loratadine | Take 10 mg by mouth | | | | | Activ | | (CLARITIN) 10 MG | daily. | | | | | e | | tablet | | | | | | | + + +-------+---------+------+------+-------+ | Cholecalciferol | Take 1 tablet by | | | | | Activ | | 2000 UNITS CAPS | mouth daily. | | | | | e | + + +-------+---------+------+------+-------+ | TURMERIC CURCUMIN | Take 1,000 mg by | | | | | Activ | | PO | mouth daily. | | | | | e | + + +-------+---------+------+------+-------+ | Multiple | Take 1 tablet by | | | | | Activ | | Vitamins-Minerals | mouth daily. | | | | | e | | (RA YANEZ-TRAY | | | | | | | | SENIOR PO) | | | | | | | + + +-------+---------+------+------+-------+ Active Problems + + + | Problem | Noted Date | + + + | Paroxysmal SVT (supraventricular tachycardia) | 06/10/2016 | + + + Family History + + +------+ + | Medical History | Relation | Name | Comments | + + +------+ + | Cancer | Father | | prostate | + + +------+ + | Heart defect | Father | | pacemaker | + + +------+ + | Cancer | Mother | | lung | + + +------+ + + +------+ + + | Relation | Name | Status | Comments | + +------+ + + | Brother | | Alive | | + +------+ + + | Brother | | Alive | | + +------+ + + | Brother | | Alive | | + +------+ + + | Father | | | | | | | (Age | | | | | 90) | | + +------+ + + | Mother | | | heart attack | | | | (Age | | | | | 86) | | + +------+ + + | Sister | | Alive | | + +------+ + + | Sister | | Alive | | + +------+ + + Social History + +-------+ +--------+------+ | Tobacco Use | Types | Packs/Day | Years | Date | | | | | Used | | + +-------+ +--------+------+ | Passive Smoke | | | | | | Exposure - Never | | | | | | Smoker | | | | | + +-------+ +--------+------+ + +---+---+---+ | Smokeless Tobacco: | | | | | Never Used | | | | + +---+---+---+ + + +---------+ + | Alcohol Use | Drinks/We | oz/Week | Comments | | | ek | | | + + +---------+ + | Yes | | | occ once or twice a week | + + +---------+ + + + + | Sex Assigned at | Date Recorded | | | | + + + | Not on file | | + + + Last Filed Vital Signs + + + + | Vital Sign | Reading | Time Taken | + + + + | Blood Pressure | 112/60 | 05/19/2018 3:52 PM PST | + + + + | Pulse | 79 | 05/19/2018 3:52 PM PST | + + + + | Temperature | - | - | + + + + | Respiratory Rate | - | - | + + + + | Oxygen Saturation | 97% | 05/19/2018 3:52 PM PST | + + + + | Inhaled Oxygen | - | - | | Concentration | | | + + + + | Weight | 81.6 kg (179 lb 12.8 | 05/19/2018 3:52 PM PST | | | oz) | | + + + + | Height | 171.5 cm (5' 7.5") | 05/19/2018 3:52 PM PST | + + + + | Body Mass Index | 27.75 | 05/19/2018 3:52 PM PST | + + + + Plan of Treatment + + + + + | Health Maintenance | Due Date | Last Done | Comments | + + + + + | Vaccine: | | | | | Dtap/Tdap/Td (1 - | 6 | | | | Tdap) | | | | + + + + + | Cervical Cancer | | | | | Screening (Pap) | 7 | | | + + + + + | Breast Cancer | | | | | Screening | 7 | | | | (Mammogram) | | | | + + + + + | Colon Cancer | | | | | Screening | 7 | | | | (Colonoscopy) | | | | + + + + + | Vaccine: Zoster (1 | | | | | of 2) | 7 | | | + + + + + | Vaccine: Influenza | | | | | (#1) | 9 | | | + + + + + Results Not on filefrom Last 3 Months Insurance + +--------+ +------+-------+---------+ | Payer | Benefi | Subscriber | Type | Phone | Address | | | t Plan | ID | | | | | | / | | | | | | | Group | | | | | + +--------+ +------+-------+---------+ | [employer] HE[employer] PLAN | ODS | [id number] | | | | | | HEALTH | | | | | | | PLAN | | | | | + +--------+ +------+-------+---------+ | HEALTHY OPTIONS | HEALTH | [id number] | HMO | | | | MEDICAID PLANS | Y | | | | | | | OPTION | | | | | | | S - | | | | | | | ODS | | | | | + +--------+ +------+-------+---------+ + +--------+ +--------+ + + | Guarantor Name | Accoun | Relation to | Date | Phone | Billing Address | | | t Type | Patient | of | | | | | | | | | | + +--------+ +--------+ + + | ISABEL HOLBROOK | Person | Self [birth year] Home: | [address] | | | al/Fam | | [phone] | [phone] | [place] [address] | | | shaheed | | | [phone] | | + +--------+ +--------+ + +
--- OUTSIDE RECORDS SUMMARY | ~2019-07-07 | XMS | Encounter Summary ---
Demographics + + + | Address | [address] | | | [place] [address] | + + + | Home Phone | | + + + | Preferred Language | Unknown | + + + | Marital Status | Unknown | + + + | Yarsanism Affiliation | Unknown | + + + | Race | Unknown | + + + | Ethnic Group | Unknown | + + + Author + + + | Author | [facility] | | | and [place] | + + + | Organization | [facility] | | | [...] Team Providers + +------+ + | Care Director Of Dance Name | Role | Phone | + +------+ + PCP | Unavailable | + +------+ + Encounter Details +--------+ + + + + | Date | Type | Department | Care Team | Description | +--------+ + + + + | 12/27/ | [facility] | [facility] | | | | 1998 | Encounter | MED CTR GENERIC OP | | | | | | CONV DEPT [address] | | | | | | [place], | | | | | | [place] [address] | | | | | | [phone] | | | +--------+ + + + [...]
--- OUTSIDE RECORDS SUMMARY | ~2019-07-07 | XMS | Encounter Summary ---
Demographics + + + | Address | [address] | | | [place] [address] | + + + | Home Phone | | + + + | Preferred Language | Unknown | + + + | Marital Status | Unknown | + + + | Alevism Affiliation | Unknown | + + + | Race | Unknown | + + + | Ethnic Group | Unknown | + + + Author + + + | Author | [facility] | | | and [place] | + + + | Organization | [facility] | | | and [...] Team Providers + +------+ + | Care Medical Office Specialist Name | Role | Phone | + +------+ + PCP | Unavailable | + +------+ + Encounter Details +--------+ + + + + | Date | Type | Department | Care Team | Description | +--------+ + + + + | 12/27/ | [facility] | [facility] | | | | 1998 | Encounter | MED CTR GENERIC OP | | | | | | CONV DEPT [address] | | | | | | [place], | | | | | | [place] [address] | | | | | | [phone] | | | +--------+ + + + [...]
--- OUTSIDE RECORDS SUMMARY | ~2019-07-07 | XMS | Encounter Summary ---
Demographics + + + | Address | [address] | | | [place] [address] | + + + | Home Phone | | + + + | Preferred Language | Unknown | + + + | Marital Status | Unknown | + + + | Sikhism Affiliation | Unknown | + + + | Race | Unknown | + + + | Ethnic Group | Unknown | + + + Author + + + | Author | [facility] | | | and [place] | + + + | Organization | [facility] | | | [...] Team Providers + +------+ + | Care Passenger Car Cleaning Supervisor Name | Role | Phone | [...] [address], | | | | | [place], [place] | [place] [address] | | | | | [address] | [phone] | | | | | [phone] | | | +--------+ + + + [...] pressures of 5-10mmHg. | | | MEASUREMENTS Yeast Fermentation Attendant: MARIBELL Authenticated | | | by: Gautam [...] | | venous pressures of 5-10mmHg. MEASUREMENTS Yeast Fermentation Attendant: NINOSKAuthenticated by: | | Gautam Davila Date/Time: [...] | |MEASUREMENTS | | | | | |Yeast Fermentation Attendant: | |Authenticated by: Gautam Faulkner DO | [...]
--- OUTSIDE RECORDS SUMMARY | ~2019-07-07 | XMS | Encounter Summary ---
Demographics + + + | Address | [address] | | | [place] [address] | + + + | Home Phone | | + + + | Preferred Language | Unknown | + + + | Marital Status | | + + + | Mormon Affiliation | Unknown | + + + | Race | White | + + + | Ethnic Group | Not or | + + + Author + + + | Author | [facility] | + + + | Organization | [facility] | + + + | Address | Unknown | + + + | Phone | Unavailable | + + + Support + + +---------+ + | Name | Relationship | Address | Phone | + + +---------+ + | Juan Miguel Engum | ECON | Unknown | | + + +---------+ + Care Team Providers + +------+ + | Care Analytical Consultant Name | Role | Phone | + [...]
--- OUTSIDE RECORDS SUMMARY | ~2019-07-07 | XMS | Encounter Summary ---
Demographics + + + | Address | [address] | | | [place] [address] | + + + | Home Phone | | + + + | Preferred Language | Unknown | + + + | Marital Status | Unknown | + + + | Tenriism Affiliation | Unknown | + + + | Race | Unknown | + + + | Ethnic Group | Unknown | + + + Author + + + | Author | [facility] | | | and [place] | + + + | Organization | [facility] | | | and [...] Team Providers + +------+ + | Care Senior Android Software Engineer Name | Role | Phone | + +------+ + | Blanca Dyer PA-C | PCP | | + +------+ + Encounter Details +--------+ + + + + | Date | Type | Department | Care Team | Description | +--------+ + + + + | 06/10/ | Orders Only | [facility] GENERIC OP | Conversion | | | 2016 | | CONVERSION [address]P [address] | Transaction, | | | | | [address] | Provider Unknown | | | | | [place], [place] | [phone] | | | | | [phone] | (Fax) | | | | | [phone] | | | +--------+ + + + [...]
--- OUTSIDE RECORDS SUMMARY | ~2019-07-07 | XMS | Clinical Summary ---
Demographics + + + | Address | [address] | | | [place] [address] | + + + | Home Phone | | + + + | Preferred Language | Unknown | + + + | Marital Status | Unknown | + + + | Yazidism Affiliation | Unknown | + + + | Race | Unknown | + + + | Ethnic Group | Unknown | + + + Author + + + | Author | [facility] | | | and [place] | + + + | Organization | [facility] | | | and [...] Team Providers + +------+ + | Care Drill Sharpener Operator Name | Role | Phone | + [...]
--- OUTSIDE RECORDS SUMMARY | ~2019-07-07 | XMS | Encounter Summary ---
Demographics + + + | Address | [address] | | | [place] [address] | + + + | Home Phone | | + + + | Preferred Language | Unknown | + + + | Marital Status | | + + + | Nondenominational Affiliation | Unknown | + + + | Race | White | + + + | Ethnic Group | Not or | + + + Author + + + | Author | [facility] | + + + | Organization | [facility] | + + + | Address | Unknown | + + + | Phone | Unavailable | + + + Support + + +---------+ + | Name | Relationship | Address | Phone | + + +---------+ + | Juan Miguel Engum | ECON | Unknown | | + + +---------+ + Care Team Providers + +------+ + | Care Sash Repairer Name | Role | Phone | + [...]
--- OUTSIDE RECORDS SUMMARY | ~2019-07-07 | XMS | Encounter Summary ---
Demographics + + + | Address | [address] | | | [place] [address] | + + + | Home Phone | | + + + | Preferred Language | Unknown | + + + | Marital Status | Unknown | + + + | Hoahaoism Affiliation | Unknown | + + + | Race | Unknown | + + + | Ethnic Group | Unknown | + + + Author + + + | Author | [facility] | | | and [place] | + + + | Organization | [facility] | | [...] Team Providers + +------+ + | Care Warehouse Processor Name | Role | Phone | + [...] [address], | | | | | [place], [place] | [place] [address] | | | | | [address] | [phone] | | | | | [phone] | | | +--------+ + + + [...] pressures of 5-10mmHg. | | | MEASUREMENTS Surgical Services Manager: MARIBELL Authenticated | | | by: Gautam [...] | | venous pressures of 5-10mmHg. MEASUREMENTS Surgical Services Manager: NINOSKAuthenticated by: | | Gautam Davila Date/Time: [...] | |MEASUREMENTS | | | | | |Surgical Services Manager: | |Authenticated by: Gautam Faulkner DO | [...]
--- OUTSIDE RECORDS SUMMARY | ~2019-07-07 | XMS | Encounter Summary ---
Demographics + + + | Address | [address] | | | [place] [address] | + + + | Home Phone | | + + + | Preferred Language | Unknown | + + + | Marital Status | | + + + | Protestant Affiliation | Unknown | + + + | Race | White | + + + | Ethnic Group | Not or | + + + Author + + + | Author | [facility] | + + + | Organization | [facility] | + + + | Address | Unknown | + + + | Phone | Unavailable | + + + Support + + +---------+ + | Name | Relationship | Address | Phone | + + +---------+ + | Juan Miguel Engum | ECON | Unknown | | + + +---------+ + Care Team Providers + +------+ + | Care Ruby On Rails Engineer Name | Role | Phone | + +------+ + PCP | Unavailable | + +------+ + Encounter Details +--------+ + + + + | Date | Type | Department | Care Team | Description | +--------+ + + + + | 12/07/ | ED Progress | [facility] | Report, Emergency | ED Progress Note | | 2005 | | MEDICINE | Services | | | | Note-Transc | | [...]
--- OUTSIDE RECORDS SUMMARY | ~2019-07-07 | XMS | Encounter Summary ---
Demographics + + + | Address | [address] | | | [place] [address] | + + + | Home Phone | | + + + | Preferred Language | Unknown | + + + | Marital Status | | + + + | Caodaism Affiliation | Unknown | + + + | Race | White | + + + | Ethnic Group | Not or | + + + Author + + + | Author | [facility] | + + + | Organization | [facility] | + + + | Address | Unknown | + + + | Phone | Unavailable | + + + Support + + +---------+ + | Name | Relationship | Address | Phone | + + +---------+ + | Juan Miguel Engum | ECON | Unknown | | + + +---------+ + Care Team Providers + +------+ + | Care Construction Checker Name | Role | Phone | + [...] [id number] | | | | | | [facility] | | | | | | and Healing, | | | | | | [address] | | | | | | [place], [place] | | | | | | [address] | | | | | | [phone] | | | +--------+ + + + [...] | | | | | | popular [id number] | | | | | | skin, [id number]. The | | | | | | [...] + + | [facility] | [address], [address] | [place] [address] | | | DERMATOPATHOLOGY | [address] [...]
--- OUTSIDE RECORDS SUMMARY | ~2019-07-07 | XMS | Encounter Summary ---
Demographics + + + | Address | [address] | | | [place] [address] | + + + | Home Phone | | + + + | Preferred Language | Unknown | + + + | Marital Status | | + + + | Jainism Affiliation | Unknown | + + + | Race | White | + + + | Ethnic Group | Not or | + + + Author + + + | Author | [facility] | + + + | Organization | [facility] | + + + | Address | Unknown | + + + | Phone | Unavailable | + + + Support + + +---------+ + | Name | Relationship | Address | Phone | + + +---------+ + | Juan Miguel Engum | ECON | Unknown | | + + +---------+ + Care Team Providers + +------+ + | Care Crime Scene Technician Name | Role | Phone | + +------+ + PCP | Unavailable | + +------+ + Encounter Details +--------+ + + + + | Date | Type | Department | Care Team | Description | +--------+ + + + + | 12/06/ | Hospital | Registration 3181 | Tony, | | | 2006 | Activity | MARISA Salazar | MD [address] | | | | | Filiberto Mailcode: [address] | [address] | | | | | [place], [place] | [place], [place] | | | | | [address] | [address] | | | | | [phone] | [phone] | | | | | | | [...] | | + +---------+ + + | [facility] DEPARTMENT OF | | | | | [...]
--- OUTSIDE RECORDS SUMMARY | ~2019-07-07 | XMS | Encounter Summary ---
Demographics + + + | Address | [address] | | | [place] [address] | + + + | Home Phone | | + + + | Preferred Language | Unknown | + + + | Marital Status | Unknown | + + + | Jain Affiliation | Unknown | + + + | Race | Unknown | + + + | Ethnic Group | Unknown | + + + Author + + + | Author | [facility] | | | and [place] | + + + | Organization | [facility] | | | [...] Team Providers + +------+ + | Care Customer Sales Consultant Name | Role | Phone | [...] Provider Unknown | | | | | [place], [place] | [phone] | | | | | [address] | (Fax) | | | | | [phone] | | | +--------+ + + + [...]
--- OUTSIDE RECORDS SUMMARY | ~2019-07-07 | XMS | Encounter Summary ---
Demographics + + + | Address | [address] | | | [place] [address] | + + + | Home Phone | | + + + | Preferred Language | Unknown | + + + | Marital Status | | + + + | Baptist Affiliation | Unknown | + + + | Race | White | + + + | Ethnic Group | Not or | + + + Author + + + | Author | [facility] | + + + | Organization | [facility] | + + + | Address | Unknown | + + + | Phone | Unavailable | + + + Support + + +---------+ + | Name | Relationship | Address | Phone | + + +---------+ + | Juan Miguel Engum | ECON | Unknown | | + + +---------+ + Care Team Providers + +------+ + | Care Development Consultant Name | Role | Phone | + +------+ + PCP | Unavailable | + +------+ + Encounter Details +--------+ + + + + | Date | Type | Department | Care Team | Description | +--------+ + + + + | 08/10/ | Documentati | NON-[facility] | Unknown . | | | 2019 | on | Department | | | +--------+ + + + [...]
--- OUTSIDE RECORDS SUMMARY | ~2019-07-07 | XMS | Encounter Summary ---
Demographics + + + | Address | [address] | | | [place] [address] | + + + | Home Phone | | + + + | Preferred Language | Unknown | + + + | Marital Status | | + + + | Restorationism Affiliation | Unknown | + + + | Race | White | + + + | Ethnic Group | Not or | + + + Author + + + | Author | [facility] | + + + | Organization | [facility] | + + + | Address | Unknown | + + + | Phone | Unavailable | + + + Support + + +---------+ + | Name | Relationship | Address | Phone | + + +---------+ + | Juan Miguel Engum | ECON | Unknown | | + + +---------+ + Care Team Providers + +------+ + | Care Tube Blower Name | Role | Phone | + [...] [id number] | | | | | | [facility] | | | | | | and Healing, | | | | | | [address] | | | | | | [place], [place] | | | | | | [address] | | | | | | [phone] | | | +--------+ + + + [...] | | | | | | popular [id number] | | | | | | skin, [id number]. The | | | | | | [...] + + | [facility] | [address], [address] | [place] [address] | | | DERMATOPATHOLOGY | [address] [...]
--- OUTSIDE RECORDS SUMMARY | ~2019-07-07 | XMS | Encounter Summary ---
Demographics + + + | Address | [address] | | | [place] [address] | + + + | Home Phone | | + + + | Preferred Language | Unknown | + + + | Marital Status | | + + + | Confucianist Affiliation | Unknown | + + + | Race | White | + + + | Ethnic Group | Not or | + + + Author + + + | Author | [facility] | + + + | Organization | [facility] | + + + | Address | Unknown | + + + | Phone | Unavailable | + + + Support + + +---------+ + | Name | Relationship | Address | Phone | + + +---------+ + | Juan Miguel Engum | ECON | Unknown | | + + +---------+ + Care Team Providers + +------+ + | Care Concrete Handler Name | Role | Phone | + [...]
--- OUTSIDE RECORDS SUMMARY | ~2019-07-07 | XMS | Encounter Summary ---
Demographics + + + | Address | [address] | | | [place] [address] | + + + | Home Phone | | + + + | Preferred Language | Unknown | + + + | Marital Status | | + + + | Temple Affiliation | Unknown | + + + | Race | White | + + + | Ethnic Group | Not or | + + + Author + + + | Author | [facility] | + + + | Organization | [facility] | + + + | Address | Unknown | + + + | Phone | Unavailable | + + + Support + + +---------+ + | Name | Relationship | Address | Phone | + + +---------+ + | Juan Miguel Engum | ECON | Unknown | | + + +---------+ + Care Team Providers + +------+ + | Care Iron Setter Name | Role | Phone | + [...]
--- OUTSIDE RECORDS SUMMARY | ~2019-07-07 | XMS | Encounter Summary ---
Demographics + + + | Address | [address] | | | [place] [address] | + + + | Home Phone | | + + + | Preferred Language | Unknown | + + + | Marital Status | | + + + | Pentecostal Affiliation | Unknown | + + + | Race | White | + + + | Ethnic Group | Not or | + + + Author + + + | Author | [facility] | + + + | Organization | [facility] | + + + | Address | Unknown | + + + | Phone | Unavailable | + + + Support + + +---------+ + | Name | Relationship | Address | Phone | + + +---------+ + | Juan Miguel Engum | ECON | Unknown | | + + +---------+ + Care Team Providers + +------+ + | Care Commercial Finance Analyst Name | Role | Phone | + [...] [place] | | | | | | [address] | | | | | | | [...] slide | | | | | | ([id number]) | | | | | | received. [...] slide | | | | | | ([id number]) | | | | | | returned [...] + + | [facility] | [address] | [place] [address] | | | DERMATOPATHOLOGY | [address] | | | + + + + + documented in this encounter Visit Diagnoses Not on filedocumented in this encounter
--- OUTSIDE RECORDS SUMMARY | ~2019-07-07 | XMS | Encounter Summary ---
Demographics + + + | Address | [address] | | | [place] [address] | + + + | Home Phone | | + + + | Preferred Language | Unknown | + + + | Marital Status | | + + + | Church Affiliation | Unknown | + + + | Race | White | + + + | Ethnic Group | Not or | + + + Author + + + | Author | [facility] | + + + | Organization | [facility] | + + + | Address | Unknown | + + + | Phone | Unavailable | + + + Support + + +---------+ + | Name | Relationship | Address | Phone | + + +---------+ + | Juan Miguel Engum | ECON | Unknown | | + + +---------+ + Care Team Providers + +------+ + | Care Ice Cream Chef Name | Role | Phone | + [...]
--- OUTSIDE RECORDS SUMMARY | ~2019-07-07 | XMS | Encounter Summary ---
Demographics + + + | Address | [address] | | | [place] [address] | + + + | Home Phone | | + + + | Preferred Language | Unknown | + + + | Marital Status | | + + + | Shinto Affiliation | Unknown | + + + | Race | White | + + + | Ethnic Group | Not or | + + + Author + + + | Author | [facility] | + + + | Organization | [facility] | + + + | Address | Unknown | + + + | Phone | Unavailable | + + + Support + + +---------+ + | Name | Relationship | Address | Phone | + + +---------+ + | Juan Miguel Engum | ECON | Unknown | | + + +---------+ + Care Team Providers + +------+ + | Care Heat Reader Name | Role | Phone | + [...] [address] | | | | | | [place], [place] | | | | | | [address] | | | +--------+ + + + [...]
--- OUTSIDE RECORDS SUMMARY | ~2019-07-07 | XMS | Encounter Summary ---
Demographics + + + | Address | [address] | | | [place] [address] | + + + | Home Phone | | + + + | Preferred Language | Unknown | + + + | Marital Status | | + + + | Congregational Affiliation | Unknown | + + + | Race | White | + + + | Ethnic Group | Not or | + + + Author + + + | Author | [facility] | + + + | Organization | [facility] | + + + | Address | Unknown | + + + | Phone | Unavailable | + + + Support + + +---------+ + | Name | Relationship | Address | Phone | + + +---------+ + | Juan Miguel Engum | ECON | Unknown | | + + +---------+ + Care Team Providers + +------+ + | Care Senior Credit Officer Name | Role | Phone | [...] [place] | | | | | | [address] | | | | | | | [...] slide | | | | | | ([id number]) | | | | | | received. [...] slide | | | | | | ([id number]) | | | | | | returned [...] + + | [facility] | [address] | [place] [address] | | | DERMATOPATHOLOGY | [address] | | | + + + + + documented in this encounter Visit Diagnoses Not on filedocumented in this encounter
--- OUTSIDE RECORDS SUMMARY | ~2019-07-07 | XMS | Encounter Summary ---
Demographics + + + | Address | [address] | | | [place] [address] | + + + | Home Phone | | + + + | Preferred Language | Unknown | + + + | Marital Status | | + + + | Uatsdin Affiliation | Unknown | + + + | Race | White | + + + | Ethnic Group | Not or | + + + Author + + + | Author | [facility] | + + + | Organization | [facility] | + + + | Address | Unknown | + + + | Phone | Unavailable | + + + Support + + +---------+ + | Name | Relationship | Address | Phone | + + +---------+ + | Juan Miguel Engum | ECON | Unknown | | + + +---------+ + Care Team Providers + +------+ + | Care Commercial Sheet Metal Foreman Name | Role | Phone | + +------+ + PCP | Unavailable | + +------+ + Encounter Details +--------+ + + + + | Date | Type | Department | Care Team | Description | +--------+ + + + + | 12/06/ | Hospital | Registration 3181 | Tony, | | | 2006 | Activity | MARISA Salazar | MD [address] | | | | | [address] Mailcode: [address] | [address] | | | | | [place], [place] | [place], [place] | | | | | [address] | [address] | | | | | [phone] | [phone] | | | | | | | [...] | | + +---------+ + + | [facility] DEPARTMENT OF | | | | [...]
--- OUTSIDE RECORDS SUMMARY | ~2019-07-07 | XMS | Encounter Summary ---
Demographics + + + | Address | [address] | | | [place] [address] | + + + | Home Phone | | + + + | Preferred Language | Unknown | + + + | Marital Status | | + + + | Religion Affiliation | Unknown | + + + | Race | White | + + + | Ethnic Group | Not or | + + + Author + + + | Author | [facility] | + + + | Organization | [facility] | + + + | [...] + +------+ + | Care Director Of Market Intelligence Name | Role | Phone | + [...]
--- OUTSIDE RECORDS SUMMARY | ~2019-07-07 | XMS | Clinical Summary ---
Demographics + + + | Address | [address] | | | [place] [address] | + + + | Home Phone | | + + + | Preferred Language | Unknown | + + + | Marital Status | | + + + | Sikhism Affiliation [...] Team Providers + +------+ + | Care Credit Card Associate Name | Role | Phone | + +------+ + PCP | Unavailable | + +------+ + Source Comments [facility] is fully live on both [facility] Ambulatory and [facility] InPatient.[facility] Allergies Not on File Medications Not on [...] OEBB | MODA | xxxxxxxxx | | [phone] | [address] | | | [address] | | [address] | [address] | | | | [address] | | lissy | | [place], | | | | [place] | | | | [place] [address] | | + +--------+ +--------+ + +------+ [...] | | 1955 | | [place] [address] | | | shaheed | | | 8 (Home) | | + +--------+ +--------+ + + | Isabel Dunbar | Third | Self | [birth year] | | [address] | | | [employer] [place] | | 1955 | | [place] [address] | | | Liabil | | | 8 (Home) | | | | ity | | | | | + +--------+ +--------+ + +"
--- OUTSIDE RECORDS SUMMARY | ~2019-07-07 | XMS | Encounter Summary ---
Demographics + + + | Address | [address] | | | [place] [address] | + + + | Home Phone | | + + + | Preferred Language | Unknown | + + + | Marital Status | | + + + | Presybeterian Affiliation | Unknown | + + + | Race | White | + + + | Ethnic Group | Not or | + + + Author + + + | Author | [facility] | + + + | Organization | [facility] | + + + | Address | Unknown | + + + | Phone | Unavailable | + + + Support + + +---------+ + | Name | Relationship | Address | Phone | + + +---------+ + | Juan Miguel Engum | ECON | Unknown | | + + +---------+ + Care Team Providers + +------+ + | Care Bean Dumper Name | Role | Phone | + [...]
--- OUTSIDE RECORDS SUMMARY | ~2019-07-07 | XMS | Clinical Summary ---
Demographics + + + | Address | [address] | | | [place] [address] | + + + | Home Phone | | + + + | Preferred Language | Unknown | + + + | Marital Status | Unknown | + + + | Sabianism Affiliation [...] Team Providers + +------+ + | Care Home Health Care Provider Name | Role | Phone | + [...]
--- OUTSIDE RECORDS SUMMARY | ~2019-07-07 | XMS | Clinical Summary ---
Demographics + + + | Address | [address] | | | [place] [address] | + + + | Home Phone | | + + + | Preferred Language | Unknown | + + + | Marital Status | | + + + | Mandaeism Affiliation | Unknown | + + + [...] Team Providers + +------+ + | Care Shell Plater Name | Role | Phone | + +------+ + PCP | Unavailable | + +------+ + Source Comments [facility] is fully live on both [facility] Ambulatory and [facility] Allergies Not on File Medications Not on [...] OEBB | MODA | xxxxxxxxx | | [phone] | [address] | [address] | | | [address] | | [address] | [address] | | | | [place] | | lissy | | [place], | | | | [place] | | | | [place] [address] | | + +--------+ +--------+ + +------+ [...] | | 1955 | | [place] [address] | | | shaheed | | | 8 (Home) | | + +--------+ +--------+ + + | Isabel Dunbar | Third | Self | [birth year] | | [address] | | | [place] | | 1955 | | [place] [address] | | | Liabil | | | 8 (Home) | | | | ity | | | | | + +--------+ +--------+ + +"
--- OUTSIDE RECORDS SUMMARY | ~2019-07-07 | XMS | Encounter Summary ---
Demographics + + + | Address | [address] | | | [place] [address] | + + + | Home Phone | | + + + | Preferred Language | Unknown | + + + | Marital Status | | + + + | Jehovah'S Witness Affiliation | Unknown | + + + | Race | White | + + + | Ethnic Group | Not or | + + + Author + + + | Author | [facility] | + + + | Organization | [facility] | + + + | Address | Unknown | + + + | Phone | Unavailable | + + + Support + + +---------+ + | Name | Relationship | Address | Phone | + + +---------+ + | Juan Miguel Engum | ECON | Unknown | | + + +---------+ + Care Team Providers + +------+ + | Care Granulator Operator Name | Role | Phone | [...] [id number] | | | | | | [facility] | | | | | | and Healing, | | | | | | [address] | | | | | | [place], [place] | | | | | | [address] | | | | | | [phone] | | | +--------+ + + + [...] | | | | | | popular lkrm-[id number]-[id number] | | | | | | skin, [id number]. The | | | | | | [...] + + | [facility] | [address], [address] | [place] [address] | | | DERMATOPATHOLOGY | [address] [...]
--- OUTSIDE RECORDS SUMMARY | ~2019-07-07 | XMS | Encounter Summary ---
Demographics + + + | Address | [address] | | | [place] [address] | + + + | Home Phone | | + + + | Preferred Language | Unknown | + + + | Marital Status | | + + + | Yarsani Affiliation | Unknown | + + + | Race | White | + + + | Ethnic Group | Not or | + + + Author + + + | Author | [facility] | + + + | Organization | [facility] | + + + | Address | Unknown | + + + | Phone | Unavailable | + + + Support + + +---------+ + | Name | Relationship | Address | Phone | + + +---------+ + | Juan Miguel Engum | ECON | Unknown | | + + +---------+ + Care Team Providers + +------+ + | Care Apple Picker Name | Role | Phone | + +------+ + PCP | Unavailable | + +------+ + Encounter Details +--------+ + + + + | Date | Type | Department | Care Team | Description | +--------+ + + + + | 12/06/ | Hospital | Registration 3181 | Tony, | | | 2006 | Activity | MARISA Salazar | MD [address] | | | | | [address] Mail[address]: [address] | [address] | | | | | [place], [place] | [place], [place] | | | | | [address] | [address] | | | | | [phone] | [phone] | | | | | | | [...] | | + +---------+ + + | [facility] DEPARTMENT OF | | | | | [...]
--- OUTSIDE RECORDS SUMMARY | ~2019-07-07 | XMS | Clinical Summary ---
Demographics + + + | Address | [address] | | | [place] [address] | + + + | Home Phone | | + + + | Preferred Language | Unknown | + + + | Marital Status | | + + + | Jewish Affiliation | Unknown | + + + | Race | Unknown | + + + | Ethnic Group | Unknown | + + + Author + + + | Author | [email or web address] (Historical as of | | | 02-05-19) | + + + | Organization | [email or web address] (Historical as of | | | 02-05-19) [...] Team Providers + +------+ + | Care Continuous Pickling Line Pickler Name | Role | Phone | + [...] | [employer]DS HEALTH PLAN | ODS | [id number] | | | | | | HEALTH | | | | | | | PLAN | | | | | + +--------+ +------+-------+---------+ | HEALTHY OPTIONS | HEALTH | [id number] | HMO | | | | MEDICAID [...] Self | [birth year] | Home: | [address] | | | al/Fam | | 7 | [phone] | [place] [address] | | | [place] | | | [address] | | + +--------+ +--------+ + +
--- OUTSIDE RECORDS SUMMARY | ~2019-07-07 | XMS | Clinical Summary ---
Demographics + + + | Address | [address] | | | [place] [address] | + + + | Home Phone | | + + + | Preferred Language | Unknown | + + + | Marital Status | | + + + | Shinto Affiliation | Unknown | + + + | Race | Unknown | + + + | Ethnic Group | Unknown | + + + Author + + + | Author | [facility] (Historical as of | | | 02-05-19) | + + + | Organization | [facility] (Historical as of | | | 02-05-19) [...] Team Providers + +------+ + | Care Business Support Professional Name | Role | Phone | + [...] | [employer]DS HEALTH PLAN | ODS | [id number] | | | | | | HEALTH | | | | | | | PLAN | | | | | + +--------+ +------+-------+---------+ | HEALTHY OPTIONS | HEALTH | [id number] | HMO | | | | MEDICAID [...] Self | [birth year] | Home: | [address] | | | al/Fam | | 7 | [phone] | [place] [address] | | | shaheed | | | [address] | | + +--------+ +--------+ + +
--- OUTSIDE RECORDS SUMMARY | ~2019-07-07 | XMS | Encounter Summary ---
Demographics + + + | Address | [address] | | | [place] [address] | + + + | Home Phone | | + + + | Preferred Language | Unknown | + + + | Marital Status | Unknown | + + + | Tenriism Affiliation | Unknown | + + + | Race | Unknown | + + + | Ethnic Group | Unknown | + + + Author + + + | Author | [facility] | | | and [place] | + + + | Organization | [facility] | | | [...] Team Providers + +------+ + | Care Real Estate Analyst Name | Role | Phone | [...] [address] [place], | | | | | [place], [place] | [place] [address] | | | | | [address] | [phone] | | | | | [phone] | | | +--------+ + + + [...] pressures of 5-10mmHg. | | | MEASUREMENTS Multilith Operator: MARIBELL Authenticated | | | by: Gautam [...] | | venous pressures of 5-10mmHg. MEASUREMENTS Multilith Operator: NINOSKAuthenticated by: | | Gautam Davila Date/Time: [...] | |MEASUREMENTS | | | | | |Multilith Operator: | |Authenticated by: Gautam Faulkner DO | [...]
--- OUTSIDE RECORDS SUMMARY | ~2019-07-07 | XMS | Encounter Summary ---
Demographics + + + | Address | [address] | | | [place] [address] | + + + | Home Phone [...] + + + | Author | [facility] | + + + | Organization | [facility] | + + + | Address | Unknown | + + + | Phone | Unavailable | + + + Support + + +---------+ + | Name | Relationship | Address | Phone | + + +---------+ + | Juan Miguel Engum | ECON | Unknown | | + + +---------+ + Care Team Providers + +------+ + | Care Tire Finisher Name | Role | Phone | + [...]
--- OUTSIDE RECORDS SUMMARY | ~2019-07-07 | XMS | Encounter Summary ---
Demographics + + + | Address | [address] | | | [place] [address] | + + + | Home Phone | | + + + | Preferred Language | Unknown | + + + | Marital Status | | + + + | Gnosticism Affiliation | Unknown | + + + | Race | White | + + + | Ethnic Group | Not or | + + + Author + + + | Author | [facility] | + + + | Organization | [facility] | + + + | Address | Unknown | + + + | Phone | Unavailable | + + + Support + + +---------+ + | Name | Relationship | Address | Phone | + + +---------+ + | Juan Miguel Engum | ECON | Unknown | | + + +---------+ + Care Team Providers + +------+ + | Care Gauge Checker Name | Role | Phone | [...]
--- OUTSIDE RECORDS SUMMARY | ~2019-07-07 | XMS | Encounter Summary ---
Demographics + + + | Address | [address] | | | [place] [address] | + + + | Home Phone | | + + + | Preferred Language | Unknown | + + + | Marital Status | | + + + | Tenriism Affiliation | Unknown | + + + | Race | White | + + + | Ethnic Group | Not or | + + + Author + + + | Author | [facility] | + + + | Organization | [facility] | + + + | Address | Unknown | + + + | Phone | Unavailable | + + + Support + + +---------+ + | Name | Relationship | Address | Phone | + + +---------+ + | Juan Miguel Engum | ECON | Unknown | | + + +---------+ + Care Team Providers + +------+ + | Care Production Line Worker Name | Role | Phone | [...]
--- OUTSIDE RECORDS SUMMARY | ~2019-07-07 | XMS | Encounter Summary ---
Demographics + + + | Address | [address] | | | [place] [address] | + + + | Home Phone | | + + + | Preferred Language | Unknown | + + + | Marital Status | | + + + | Rastafarian Affiliation | Unknown | + + + | Race | White | + + + | Ethnic Group | Not or | + + + Author + + + | Author | [facility] | + + + | Organization | [facility] | + + + | Address | Unknown | + + + | Phone | Unavailable | + + + Support + + +---------+ + | Name | Relationship | Address | Phone | + + +---------+ + | Juan Miguel Engum | ECON | Unknown | | + + +---------+ + Care Team Providers + +------+ + | Care Corn Breeder Name | Role | Phone | + [...] [place] | | | | | | [address] | | | | | | | [...] slide | | | | | | ([id number]) | | | | | | received. [...] slide | | | | | | ([id number]) | | | | | | returned [...] + + | [facility] | [address] | [place] [address] | | | DERMATOPATHOLOGY | Neil Morocho | | | + + + + + documented in this encounter Visit Diagnoses Not on filedocumented in this encounter
--- OUTSIDE RECORDS SUMMARY | ~2019-07-07 | XMS | Encounter Summary ---
Demographics + + + | Address | [address] | | | [place] [address] | + + + | Home Phone | | + + + | Preferred Language | Unknown | + + + | Marital Status | | + + + | Druze Affiliation | Unknown | + + + [...] Team Providers + +------+ + | Care Storage Solutions Architect Name | Role | Phone | + [...] [address] | | | | | | [place], [place] | | | | | | [address] | | | +--------+ + + + [...]
--- OUTSIDE RECORDS SUMMARY | ~2019-07-07 | XMS | Clinical Summary ---
Demographics + + + | Address | [address] | | | [place] [address] | + + + | Home Phone | | + + + | Preferred Language | Unknown | + + + | Marital Status | Unknown | + + + | Denominational Affiliation | Unknown | + + + | Race | Unknown | + + + | Ethnic Group | Unknown | + + + Author + + + | Author | [facility] | | | and [place] | + + + | Organization | [facility] | | | [...] + +------+ + | Care Real Estate Rep Name | Role | Phone | + [...]
--- OUTSIDE RECORDS SUMMARY | ~2019-07-07 | XMS | Encounter Summary ---
Demographics + + + | Address | [address] | | | [place] [address] | + + + | Home Phone | | + + + | Preferred Language | Unknown | + + + | Marital Status | Unknown | + + + | Methodist Affiliation | Unknown | + + + | Race | Unknown | + + + | Ethnic Group | Unknown | + + + Author + + + | Author | [facility] | | | and [place] | + + + | Organization | [facility] | | | [...] + +------+ + | Care Crime Scene Investigator Name | Role | Phone | + +------+ + PCP | Unavailable | + +------+ + Encounter Details +--------+ + + + + | Date | Type | Department | Care Team | Description | +--------+ + + + + | 12/27/ | [facility] | [facility] | | | | 1998 | Encounter | MED CTR GENERIC OP | | | | | | CONV DEPT [address] | | | | | | [place], | | | | | | [place] [address] | | | | | | [phone] | | | +--------+ + + + [...]
--- OUTSIDE RECORDS SUMMARY | ~2019-07-07 | XMS | Encounter Summary ---
Demographics + + + | Address | [address] | | | [place] [address] | + + + | Home Phone | | + + + | Preferred Language | Unknown | + + + | Marital Status | Unknown | + + + | Zoroastrianism Affiliation | Unknown | + + + | Race | Unknown | + + + | Ethnic Group | Unknown | + + + Author + + + | Author | [facility] | | | and [place] | + + + | Organization | [facility] | | | and [...] Team Providers + +------+ + | Care Tin Dipper Name | Role | Phone | + [...] Provider Unknown | | | | | [place], [place] | [phone] | | | | | [phone] | (Fax) | | | | | [phone] | | | +--------+ + + + [...]
--- OUTSIDE RECORDS SUMMARY | ~2019-07-07 | XMS | Encounter Summary ---
Demographics + + + | Address | [address] | | | [place] [address] | + + + | Home Phone | | + + + | Preferred Language | Unknown | + + + | Marital Status | | + + + | Bahai Affiliation | Unknown | + + + [...] Team Providers + +------+ + | Care Retort Setter Name | Role | Phone | [...] [address] | | | | | | [place], [place] | | | | | | [address] | | | +--------+ + + + [...]
--- OUTSIDE RECORDS SUMMARY | ~2019-07-07 | XMS | Clinical Summary ---
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 Name | Role | Phone | + +------+ + PCP | Unavailable | + +------+ + Source Comments [facility] is fully live on both [facility] and [facility] InPatient.[facility] Allergies Not on File Medications Not [...] [employer] | MODA | [phone] | | [phone] | [address] | [address] | | | [employer] | | [address] | [phone] | | | | [place] | | lissy | | [place], | | | | [place] | | | | [place] [address] | | + +--------+ +--------+ + +------+ [...] | | 1955 | | [place] [address] | | | shaheed | | | [address] (Home) | | + +--------+ +--------+ + + | Isabel Dunbar | Third | Self | [birth year] | | [address] | | | [place] | | 1955 | | [place] [address] | | | Liabil | | | 8 (Home) | | | | ity | | | | | + +--------+ +--------+ + +"
[~2019-07-07 10:54] MED LIST changes: +ONDANSETRON ODT8 MG PO; +TURMERIC 500 M1 EACH PO
--- OUTSIDE RECORDS SUMMARY | 2019-07-07 10:58 | XMS ---
PreManage Notification: DOMINGA HOLBROOK Security Vp Cardiovascular Events No recent Security Events currently on file CRITERIA MET - [facility] - 2 Visits in 30 Days CARE PROVIDERS There are no care providers on record at this time. Saeed has no Care Guidelines for this patient. [facility] V[facility] (12 MO.) [facility] NOTE: Visits indicate total known visits. ED/C VISIT TRACKING (12 MO.) 07/07/2019 10:55 [facility] [place] TYPE: Emergency COMPLAINT: - ABNORMAL LAB RESULTS 07/06/2019 08:40 [facility] [place] TYPE: Emergency COMPLAINT: - ABDOMINAL PAIN INPATIENT VISIT TRACKING (12 MO.) No inpatient visits to display in this time frame [email or web address]
--- NOTE | 2019-07-07 17:18 | NUR ---
07/07/19 171 Linnette Scales 164 PATIENT ARRIVE ON MED/SURG BED. DROWSY BUT AWAKES TO VERBAL STIMULI. RR REGULAR AND EVEN. 165 TITRATED O2 MASK OFF FROM 6L TO ROOM AIR. PATIENT DROWSY RATING PAIN 4/10 ON PAIN SCALE. STATES " FEELS LIKE A GALLBLADDER ATTACK". 1700 ADMINISTERED PAIN MED PER AUG. PATIENT STATES " IT'S GETTING WORSE, AND HURTS WORSE WHEN I BREATHE". RR REGULAR. DRESSING TO ABDOMEN INTACT, RLQ GAUZE HAS SMALL AMOUNT OF DRAINAGE AROUND EM INSERTION SITE.
--- NOTE | 2019-07-07 17:45 | NUR ---
PT ARRIVED TO FLOOR VIA HOSPITAL BED. PT IS ALERT AND ORIENTED. PAIN IS WELL CONTROLLED. RESPIRAITONS EQUALA ND NONLABORED. EM DRESSING WITH SMALL AMOUNT OF SHADOWING, OTHER LAP SITES C/D/I. DENIES NAUSEA. EM WITH SEROSANG DRAINAGE. D5LR AT 100 STARTED. ORIENTED TO ROOM AND CALL LIGHT.
[2019-07-07] MEDS ORDERED: CALCIUM 500 +1 EAC2 PO (17:57)
--- NOTE | 2019-07-07 17:58 | NUR ---
MED REC COMPLETE
--- NOTE | 2019-07-07 18:21 | NUR ---
PATIENT RESTING IN BED. PATIENT REPORTS ABD PAIN 6/10. ICE PACK TO ABDOMEN, WARM BLANKET PROVIDED.
--- NOTE | 2019-07-07 18:45 | NUR ---
DRESSING UNCHAGED. PAIN 6/10 TYLENOL ADMINSITERED. NO NAUSEA. CALL LIGHT IN REACH. VITALS STABLE. PT ALERT AND ORIENTED.
--- NOTE | 2019-07-07 20:50 | NUR ---
PATIENT HAVING 6-7/10 ABD PAIN AND WAS GIVEN 0.8MG IV DILAUDID. CALL LIGHT IN REACH, WATER REFILLED AND II REACH.
--- NOTE | 2019-07-07 22:35 | NUR ---
PATIENT WOKE UP AND HAVING 6/10 ABD SURGICAL SITE PAIN AND GIVEN 1MG IV DILAUDID. CALL LIGHT IN REACH. WATER GALL IN REACH.
--- NOTE | 2019-07-07 23:53 | NUR ---
PATIENT RESTING QUIETLY ON HER LEFT SIDE, RESPIRATIONS REGULAR AND EVEN, PER CPOX SATS IN THE 90'S AND HR IN THE 70'S. CALL LIGHT IN REACH.
--- NOTE | 2019-07-08 00:37 | NUR ---
PATIENT NPO SINCE MIDNIGHT.
--- NOTE | 2019-07-08 02:31 | NUR ---
PATIENT GIVEN ANOTHER 1MG IV DILAUDID FOR 8/10 ABD PAIN, WENT TO THE RESTROOM AND NEXT IV WAS HUNG. PAIN DOWN TO A 3/10 WHEN I LEFT THE ROOM. CALL LIGHT IN REACH, PATIENT REMAINS NPO.
--- NOTE | 2019-07-08 05:21 | NUR ---
PATIENT SAYS SHE JUST CAT NAPPED MOST OF THE NIGHT, WITH PAIN WELL CONTROLLED WITH IV DILAUDID.PATIENT AWAKE NOW HAD BEEN UP AND VOIDED AGAIN. PAIN 3/10 AFTER ANOTHER 1MG DILAUDID. ICE BAG BROKE AND GOWN AND EM DRESSING HAD TO BE CHANGED, DRAIN HAS PUT OUT MINIMAL DRAINAGE. IV WNL. PATIENT USING HER PHONE AND CALL LIGHT IN RFEACH AT THIS TIME.
--- NOTE | 2019-07-08 05:40 | OR ---
[facility] [address], [place] [address] Signed DATE OF OPERATION: 07/07/2019 SURGEON: Diaz Bruno MD PREOPERATIVE DIAGNOSES: 1. Bbqdy-wm-jcedzkg cholecystitis with cholelithiasis (sludge). 2. Gram-negative bacilli bacteremia. POSTOPERATIVE DIAGNOSES: 1. Xsfzu-gl-oetsden cholecystitis. 2. Choledocholithiasis x1. PROCEDURES: 1. Laparoscopic cholecystectomy with intraoperative cholangiogram. 2. Subhepatic drain placement. ESTIMATED BLOOD LOSS: None. FINDINGS: Isabel had isavz-zi-amssgfv inflammation of her gallbladder. The gallbladder wall, although not thickened, was certainly edematous throughout. She had chronic inflammatory changes particularly down around the neck of the gallbladder. She had significant cholesterolosis as well. The intraoperative cholangiogram showed a relatively small stone in her distal common bile duct. The stone is probably 4 to 6 mm in diameter. Only a small amount of contrast went around the stone and into the duodenum. The rest of the extra and intrahepatic bile ducts were without filling defects. INDICATIONS: Isabel is a 63-year-old female, who is quite healthy. 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 I have known Isabel and her family for many years. She told me over the last two and half months, she had at least eight episodes of rather significant right upper quadrant abdominal pain. She said it is usually associated with meals but not always. It can come immediately after meal or sometime later. She had been working with her primary care provider. An ultrasound number of weeks ago showed may well have been a stone or some sludge in the gallbladder. The gallbladder wall was not particularly thickened. There was no pericholecystic fluid. The common bile duct did not seem to be dilated. She had been ordered for a HIDA scan. In the meantime, she has been in the emergency room yesterday. Her AST was only slightly up at 42 and an ALT of Electronically Signed By: DIAZ BRUNO MD 07/08/19 0540 PATIENT NAME: ISABEL HOLBROOK OPERATIVE REPORT DATE OF : 57 REPORT #: [id number] PHYSICIAN: DIAZ BRUNO MD PCP: SERJIO SON REPORT IS CONFIDENTIAL AND NOT TO BE RELEASED WITHOUT AUTHORIZATION [facility] [address], [place] [address] Signed 55. Her alkaline phosphatase was 91, but the total bilirubin was good at 0.5. Albumin was good at 4. White count was normal. Lipase was normal at 26. She had blood cultures drawn. She was allowed to be discharged from the ER yesterday evening. She had her HIDA scan this morning, that was unremarkable. However, she grew out gram-negative bacilli in her blood consistent with her fever and chills. She therefore was taken directly from our radiology department over to the emergency room. Again, repeat blood work was fine with a white count of 5.5, AST 38, ALT 48, alkaline phosphatase 79, and a total bilirubin 0.4. Again, lipase normal at 26. On this occasion, she had a chest x-ray and it was unremarkable. A CT scan of abdomen and pelvis was performed and again this was unremarkable. Consequently, no other source for her gram-negative bacteremia. She was given Rocephin, cefepime, and Flagyl. She had been seen by the Internal Medicine Service. I had been called as a general surgeon on-call. I met with Isabel in the emergency room. I reviewed with her all the above findings in detail. I explained to Isabel she had a classic presentation for a gallbladder. We reviewed the location and function of the gallbladder together along with her . We discussed laparoscopic versus open cholecystectomy. She has been through a laparoscopic appendectomy, so she is familiar with this process. I explained to her there is risk of surgery including, but not limited to bleeding, infection, scarring, change in contour of the skin, damage to bowel, damage to main bile duct, incisional hernias and other unforeseen comorbidities. I also explained to Isabel that of all patients who present to us with cholelithiasis and/or sludge somewhere between 3% and 7% of those patients will have a stone or sludge down in the bile duct. I explained this generally requires an additional procedure. I explained to her the ERCP in detail. This is not available in our community but is within 45 to 60 minutes. She had expressed understanding and wished to proceed with surgery. PROCEDURE NOTE: Isabel was brought over to our operating room and placed in the supine position under general endotracheal tube anesthesia. She was on preoperative antibiotics along with subcutaneous heparin. SCDs were in place. She was prepped and draped in the usual sterile fashion. All trocars were placed in usual positions under direct visualization of camera without difficulty. The gallbladder was grasped and elevated the right upper quadrant. The findings are as above. It took a few minutes to sweep the adhesions down and away from the triangle of Calot. The triangle of Calot was dissected free. I placed two clips on the cystic artery and it was divided. The intraoperative cholangiocatheter was inserted into the cystic duct. The intraoperative cholangiogram found the stone in her distal common bile duct. It appeared to be at least 4 mm, if not 5 or 6 mm in diameter. I believe it is too large to pass on its own. The cystic duct stump was secured with a PDS Endoloop and 2 clips were placed across the cystic duct stump to so its location. After this, the gallbladder was removed from the gallbladder fossa with the help of the cautery and placed into an EndoCatch bag. We noted the edema in the gallbladder wall. The gallbladder wall itself was boggy as well. Electronically Signed By: DIAZ BRUNO MD 07/08/19 0540 PATIENT NAME: ISABEL HOLBROOK OPERATIVE REPORT DATE OF : 57 REPORT #: [id number] PHYSICIAN: DIAZ BRUNO MD PCP: SERJIO SON REPORT IS CONFIDENTIAL AND NOT TO BE RELEASED WITHOUT AUTHORIZATION [facility] [address], [place] [address] Signed The right upper quadrant was irrigated and suctioned out until clear. We used a #7 flat Darren drain, was brought into the abdomen and into the subhepatic space next to the cystic duct. We brought the drain out through the right most lateral 5 mm subcostal trocar site. It was held in place with interrupted 2-0 nylon suture. We then used our laparoscopic suturing device to pass 0 Vicryl suture on either side of the fascia of the subxiphoid trocar site. This was tied down to close this fascia primarily. After this, gas was allowed to escape and all the trocars removed along with the gallbladder. The gallbladder was opened on the back table for photodocumentation. We closed the fascia of the supraumbilical trocar site with interrupted simple and gnkvzl-le-edmtn 0 Vicryl sutures. Local anesthetic was copiously injected into all trocar sites. Skin and dermis of each trocar site were closed with interrupted 3-0 subcuticular Monocryl sutures. Dry gauze and tape were applied to all incisions. After this, Isabel was awakened from anesthesia, extubated in the OR, and taken to recovery room in stable condition. Given her bacteremia and her choledocholithiasis, she will be staying with us tonight and will be making arrangements for ERCP in the morning. Diaz Bruno MD ALB/MODL /[id number] cc: LOUISA Ward MD Copies: SERJIO SON ANDREW L MD ~ Electronically Signed By: DIAZ BURNO MD 07/08/19 0540 PATIENT NAME: ISABEL HOLBROOK OPERATIVE REPORT DATE OF : 57 REPORT #: [id number] PHYSICIAN: DIAZ BRUNO MD PCP: SERJIO SON REPORT IS CONFIDENTIAL AND NOT TO BE RELEASED WITHOUT AUTHORIZATION
--- NOTE | 2019-07-08 05:40 | CONS ---
[facility] [address] [place], [place] [address] Signed DATE OF CONSULTATION: 07/07/2019 ADDITIONAL REFERRING PHYSICIAN: Moises Vega MD CHIEF COMPLAINT: Right upper quadrant abdominal pain. 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 She said it is very intense. It is often worse after meals, but not always, then she has developed fever and chills. She has been working with her primary care provider. An ultrasound had shown what probably was a soft stone or sludge in the gallbladder with no other signs of acute cholecystitis. She actually came to the ER last night because of pain and everything seemed to be fine except very mild elevation of her AST and ALT. She had a HIDA scan this morning and reportedly that was fine, but her blood cultures came back with gram-negative bacilli and she has been having fever and chills. She has now been given Rocephin, cefepime, and Flagyl. She had a CT scan of the abdomen and pelvis done as well and it is all negative and a chest x-ray was negative. The Internal Medicine Service has seen her and I have been asked to see her as the general surgeon on-call. PAST MEDICAL HISTORY: None. PAST SURGICAL HISTORY: Tonsillectomy and laparoscopic appendectomy. SOCIAL HISTORY: She does not smoke or drink. 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 She is to Juan Miguel Staples at [phone]. Serjio Dyer is her primary care provider. She has 3 children, all born vaginally. FAMILY HISTORY: Mom had her gallbladder removed and kidney stones, smokes, and ended up with ovarian cancer and lung cancer. Dad had prostate cancer. A sister had breast cancer. Her other sister has a benign brain tumor. REVIEW OF SYSTEMS: She had 10 systems reviewed and really nothing else significant other than her gallbladder symptoms the last 2-1/2 months. ALLERGIES: Electronically Signed By: DIAZ BRUNO MD 07/08/19 0540 PATIENT NAME: ISABEL HOLBROOK CONSULTATION DATE OF : 57 REPORT #: [id number] PHYSICIAN: DIAZ BRUNO MD PCP: SERJIO DYER REPORT IS CONFIDENTIAL AND NOT TO BE RELEASED WITHOUT AUTHORIZATION [facility] [address] [place] [address] Signed None. MEDICATIONS: 1. Zofran. 2. Multivitamin. 3. Loratadine. 4. Turmeric. PHYSICAL EXAMINATION: VITAL SIGNS: Her blood pressure is 116/57, her heart rate is 80, respiratory rate 14, and temperature is 99.0. She is 100% on room air. She is 5 feet 8 inches tall at 82 kg. GENERAL: Leonor is a 63-year-old female, who generally appears healthy and at her stated age. She does not appear systemically ill or toxic. She is not jaundiced. She is an excellent historian. Her is with her today. LUNGS: Clear to auscultation bilaterally. HEART: Regular rate and rhythm. ABDOMEN: Soft, flat, and she points to the right upper quadrant as area of her pain, but she has had pain medication currently. LABORATORY DATA: Her white blood cell count 5.5, neutrophils 75, and hemoglobin 12.7. Her AST is 38, ALT 48, alkaline phosphatase 79, total bilirubin 0.4, albumin is 4.0, and lipase is 26. Her blood cultures yesterday have gram-negative bacilli. RADIOGRAPHIC STUDIES: An ultrasound had shown probably a soft stone or some sludge in the gallbladder. A HIDA scan was unremarkable. Chest x-ray was unremarkable and the CT scan was also unremarkable. ASSESSMENT AND PLAN: Isabel is a 63-year-old female, who presents with what appears to be classic chronic cholecystitis, cholelithiasis in the form of sludge and/or soft stone. She certainly has gram-negative bacilli at this point. I reviewed with Isabel and her her current findings. They are almost clinically consistent with the gallbladder. We have reviewed the location and function of the gallbladder. We have reviewed laparoscopic versus open cholecystectomy. She understands expected intraop and postop course. We did review the risks including, but not limited to bleeding, infection, scarring, change in contour of the skin, damage to bowel, damage to main bile duct, incisional hernias, and other unforeseen comorbidities. She has expressed understanding and would like to proceed. Electronically Signed By: DIAZ BRUNO MD 07/08/19 0540 PATIENT NAME: ISABEL HOLBROOK CONSULTATION DATE OF : 57 REPORT #: [id number] PHYSICIAN: DIZA BRUNO MD PCP: SERJIO DYER REPORT IS CONFIDENTIAL AND NOT TO BE RELEASED WITHOUT AUTHORIZATION [address] [address] Signed Diaz Bruno MD ALB/MODL /[id number] cc: LOUISA Ward MD Copies: SERJIO DYER ANDREW L MD ~ Electronically Signed By: DIAZ BRUNO MD 07/08/19 0540 PATIENT NAME: ISABEL HOLBROOK CONSULTATION DATE OF : 57 REPORT #: [id number] PHYSICIAN: DIAZ BRUNO MD PCP: SERJIO DYER REPORT IS CONFIDENTIAL AND NOT TO BE RELEASED WITHOUT AUTHORIZATION
--- NOTE | 2019-07-08 07:00 | NUR ---
ARELIS RECEIVED FROM ARMATURE BALANCER RN. PT IN BED ALERT AND ORIENTED. PAIN REPORTED 6/10. PRN PAIN MEDS TO BE GIVEN. D5LR AT 100. SCD'S IN PLACE. CALL LIGHT IN REACH.
--- NOTE | 2019-07-08 07:30 | NUR ---
patient rates pain 8 out of 10. RN notified. After recieving pain medication patient agreed to wash up in the bathroom along with oral care. No other needs at this time. call button in reach.
--- NOTE | 2019-07-08 09:30 | NUR ---
SPOKE WITH PATIENT IN ROOM. PATIENT FEELS SAFE TO DISCHARGE WITH FAMILY. IS NORMALLY INDEPENDENT IN AMBULATION. PATIENT IS RETIRED, STILL WORKS PART-TIME. PATIENT FEELS SHE HAS NO FINANCIAL PROBLEMS WITH MEDICATIONS, FOOD OR UTILITIES. NO KNOWN BARRIERS TO DISCHARGE HOME AT THIS TIME.
[2019-07-08] MEDS ORDERED: CIPROFLOXACIN500 MG PO (09:53)
[2019-07-08] MEDS ORDERED: FLAGYL500 MG PO (09:54)
--- NOTE | 2019-07-08 09:55 | NUR ---
DR WILSON IN TO ROUND ON PT AND DISCUSS PLAN OF CARE. PT AGREEABLE TO DISCHARGE AND TRANSPORTING SELF TO OUTPATIENT PROCEDURE IN [place]. ASSESSMENT COMPLETED. PAIN MEDICATED WITH 1MG DILAUDID. DENIES CURRENT PAIN. DRESSIGN C/D/I. SEROSANG DRAINAGE FROM EM OF SMALL AMOUNT. LUNGS CLEAR. DENIES NAUSEA OR FLATUS. REPORTS SOME BELCHING. NPO AT SINCE MIDNIGHT FOR PROCEDURE. CALL LIGHT IN REACH.
[2019-07-08] MEDS ORDERED: NORCO 5-325 TA1 EACH PO (10:27)
--- NOTE | 2019-07-08 10:38 | NUR ---
DR BRUNO CALLED FOR ORDER FOR PAIN MED PER PT REQUEST FOR RIDE TO [facility]. TELEPHONE ORDER GIVEN AND READ BACK FOR VERIFICATION.
--- NOTE | 2019-07-08 12:18 | NUR ---
DISCHARGE INSTRUCTIONS PROVIDED WITH WRITTEN MATERIAL. QUESTIONS ANSWERED. PRESCRIPTIONS PROVIDED. ALL QUESTIONS ANSWERED. TEACH BACK FOR DRAIN MANAGEMENT DONE. PATIENT SHOWED PROPER TECHNEIQUE.
--- NOTE | 2019-07-08 18:59 | NUR ---
THIS NURSE CALLED PT TO MAKE SURE PROCEDURE WENT WELL AND THERE NO FURTHER QUESTIONS REGUARDING DISCHARGE. ALL QUESTIONS ANSWERED. PAIN WELL CONTROLLED, COMFORTABLE WITH EM DRAIN.
--- NOTE | 2019-07-08 19:45 | EKG ---
[facility] [address] [facility] [place], [place] [address] Signed Normal sinus rhythm Left axis deviation Inferior infarct , age undetermined Abnormal ECG No previous ECGs available Confirmed by TERI WILSON DO ([id number]) on 07/08/2019 7:44:53 PM Electronically Signed By: TERI WILSON DO 07/08/19 1945 PATIENT NAME: DOMINGA HOLBROOK Electrocardiogram DATE OF : 57 PHYSICIAN: TERI WILSON DO REPORT #: [id number] REPORT IS CONFIDENTIAL AND NOT TO BE RELEASED WITHOUT AUTHORIZATION
--- NOTE | 2019-07-11 11:45 | PATH ---
[facility] [address] [place], [place] [address] Signed SPECIMEN(S): A GALLBLADDER SPECIMEN SOURCE: A. GALLBLADDER CLINICAL HISTORY: Cholelithiasis, cholecystitis. FINAL PATHOLOGIC DIAGNOSIS: Gallbladder, cholecystectomy: - Chronic cholecystitis with cholesterolosis. NAL:emb:C2NR MICROSCOPIC EXAMINATION: Histologic sections of all submitted blocks are examined by light microscopy. These findings, together with the gross examination, support the pathologic diagnosis. GROSS DESCRIPTION: The specimen, labeled "KP, gallbladder," is received in formalin and consists of Specimen: Previously opened gallbladder. Dimensions: 8.7 cm in length and 5.0 cm in inner circumference. Serosa: Violaceous, smooth and focally congested. Cystic Duct: Unobstructed. Calculi: No calculi identified within the gallbladder or within the container. Mucosa: [employer], velvety with yellow flecking. Wall thickness: 0.4 cm. Lymph node: No pericystic lymph nodes are grossly identified. Additional: None. Water Maintenance Supervisor sections are submitted in cassette (A1). JS (under the direct supervision of a pathologist) The Gross Description was prepared using a voice recognition system. The report was reviewed for accuracy; however, sound-alike word errors, addition and/or deletions may occur. If there is any question about this report, please contact Client Services. PERFORMING LABORATORY: The technical component was performed by [facility], [address] [place] [id number] (Platen Grinder: Madyson Ferreira MD; CLIA# [id number]). Professional interpretation was performed by PATIENT NAME: DOMINGA HOLBROOK PATHOLOGY DATE OF : 57 REPORT #: [id number] PHYSICIAN: GABRIELLE PATHOLOGY PCP: SERJIO SON REPORT IS CONFIDENTIAL AND NOT TO BE RELEASED WITHOUT AUTHORIZATION [facility] [address] [place], [place] [address] Signed [facility], [facility], [address] [facility] [facility] [address], [place], [place] [address] (Platen Grinder: Ayo Sotelo MD; CLIA# [id number]). Diagnostician: Marni Ruiz MD Pathologist Electronically Signed 07/11/2019 Copies: ~ PATIENT NAME: DOMINGA HOLBROOK PATHOLOGY DATE OF : 57 REPORT #: [id number] PHYSICIAN: GABRIELLE PATHOLOGY PCP: SERJIO SON REPORT IS CONFIDENTIAL AND NOT TO BE RELEASED WITHOUT AUTHORIZATION
== END 2019-07-08 11:30 | disposition home or self-care (01) | DRG 418 ==
LOC: ED 10:54 → MS 13:55
PROVIDERS: Colon & Rectal Surgery; ADMIT Internal Medicine
PROC: BF101ZZ Fluoroscopy of Bile Ducts using Low Osmolar Contrast (ICD-10-PCS; 2019-07-07)
PROC: 0FT44ZZ Resection of Gallbladder, Percutaneous Endoscopic Approach (ICD-10-PCS; principal; 2019-07-07 15:25)
DX: K80.46 Calculus of bile duct with acute and chronic cholecystitis without obstruction (principal); R78.81 Bacteremia; B96.89 Other specified bacterial agents as the cause of diseases classified elsewhere; Z79.899 Other long term (current) drug therapy
CPT/HCPCS: 00790; 36415; 74177; 74300; 80053; 83605; 83690; 83735; 84100; 85025; 93005; 93010; 96361; 99285-25; J0692; J0696; J1100; J1170; J1644; J1650; J1885; J2405; J2704; J3010; J7040; J7060; J7121; Q9967

== ENCOUNTER 2021-10-23 07:00 | Day surgery (SDC) | payer OTHER ==
[~2021-10-23] VITALS: Ht 172.7 cm; Wt 84.1 kg
[~2021-10-23 07:00] MED LIST changes: +CALCIUM 500 +1 EAC2 PO; +CIPROFLOXACIN500 MG PO; +FLAGYL500 MG PO; +NORCO 5-325 TA1 EACH PO; +OSTERA TABLET1 EACH PO
--- NOTE | 2021-10-23 09:56 | NUR ---
PT BACK FROM IMAGING AND IN RESTROOM AT THIS TIME. PT BACK TO DS RM 4, IV FLUIDS ON STRAIGHT TUBING. WARM BLANKET PROVIDED. SPOUSE IN ROOM AT BEDSIDE. CALL LIGHT WITHIN REACH.
--- NOTE | 2021-10-23 11:20 | NUR ---
PT RESTING IN BED WITH SPOUSE AT BEDSIDE. PT DENIES ANY NEEDS AT THIS TIME, CALL LIGHT WITHIN REACH.
--- NOTE | 2021-10-23 14:20 | NUR ---
10/23/21 1420 Gia Herr 1415 PATIENT ARRIVES TO PACU RESTING WITH EYES CLOSED. OPENS EYES AND FOLLOWS COMMANDS WITH VERBAL STIMULI. RESP EVEN AND UNLABORED, OXYGEN MASK AT 10 LITERS TURNED OFF. WARM BLANKET PLACED ON PATIENT. PATIENT SLEEPING WHEN NOT STIMULATED.
--- NOTE | 2021-10-23 14:58 | NUR ---
1440: PT ARRIVES BACK TO DS RM 4 FROM PACU AWAKE AND ALERT. PT DENIES NAUSEA AND TOLERATES SIPS OF WATER AND IS PROVIDED CRACKERS AND APPLESAUCE. PT RATES PAIN IN LEFT BREAST 4/10 AND DENIES PAIN MEDS AT THIS TIME. PT SPOUSE AT BEDSIDE, DC CRITERIA EXPLAINED TO BOTH PT AND SPOUSE. CALL LIGHT WITHIN REACH, ENCOURAGED TO USE WITH ANY NEEDS.
[2021-10-23] MEDS ORDERED: HYDROCODON-ACE1 EAC8 PO (15:21)
--- NOTE | 2021-10-23 15:43 | NUR ---
PT RESTING IN BED WITH EYES CLOSED ON ARRIVAL. PT AROUSES WITH ENTRANCE TO ROOM AND DENIES ANY NAUSEA. PT RATES PAIN 5/10 AND WOULD LIKE PAIN MEDICATION; SEE EMAR. PT UP TO BATHROOM WITH RN ASSIST, VOIDS QS. BACK TO DS RM 4 TO GET DRESSED.
--- NOTE | 2021-10-23 16:47 | NUR ---
[id number]: DC INSTRUCTIONS PRESENTED VERBALLY AND WRITTEN TO PT AND SPOUSE. PT VERBALIZES AN UNDERSTANDING AND HAS NO FUTHER QUESTIONS. RX IN DC FOLDER AND PT AWARE OF NEED TO TAKE TO PREFERRED PHARMACY. PT SPOUSE PULLS PERSONAL VEHICLE TO MAIN ENTRANCE OF HOSPITAL. PT TRANSFERS SELF FROM STRETCHER TO AND DC FROM DS RM 4 TO HOME.
--- NOTE | 2021-10-24 06:12 | OR ---
[facility] [address] [place], [place] [address] Signed DATE OF OPERATION: 10/23/2021 SURGEON: Diaz Bruno MD PREOPERATIVE DIAGNOSIS: Left breast cancer (4 o'clock). POSTOPERATIVE DIAGNOSIS: Left breast cancer (4 o'clock). PROCEDURES: 1. Injection of methylene blue. 2. Left axillary sentinel lymph node biopsy x2. 3. Left breast wire localization lumpectomy. ESTIMATED BLOOD LOSS: None. INDICATIONS: Isabel is a 65-year-old female, who has been following along each year for her mammograms. This year they were able to visualize a 13 x 8 x 9 mm lesion at the 4 o'clock position in the left breast. It is about 4 cm back from the nipple areolar complex. The core needle biopsy came back with invasive ductal carcinoma. She was therefore referred to my office with respect to the above. I had met with Isabel and gave her our booklet on breast and breast biopsies. She has been through previous breast surgeries on the right. These were benign. I explained to her the idea of the sentinel lymph node biopsy, requiring injection of the radionuclide with methylene blue. We also discussed wire localization as this lesion is nonpalpable. She understands there will be 2 separate incisions. She and her had a three week cruise schedule in [place], so they wanted to go ahead and proceed with that. Upon her return, then we had her scheduled for the surgery. She understands the expected intraop and postop course. There is risk to surgery including, but not limited to bleeding, infection, scarring, change in contour of the skin as well as possible need for additional surgeries. We have also discussed radiation chemotherapy. She had expressed understanding and wished to proceed. DESCRIPTION OF PROCEDURE: I met with Isabel and her and our nurse in her preop area. She had already undergone the left wire localization starting at the 6 o'clock position and heading out to the 4 o'clock position. She also had injection of her radionuclide. We all Electronically Signed By: DIAZ BRUNO MD 10/24/21 0612 PATIENT NAME: ISABEL HOLBROOK OPERATIVE REPORT DATE OF : 57 REPORT #: [id number] PHYSICIAN: DIAZ BRUNO MD PCP: BLANCA SON REPORT IS CONFIDENTIAL AND NOT TO BE RELEASED WITHOUT AUTHORIZATION [facility] [address] [place] [id number] Signed confirmed that area and marked the breast appropriately. After this, Leonor was taken in the operating room and placed in the supine position under general anesthesia. She was given preoperative antibiotics along with subcutaneous heparin. SCDs were utilized. She was then prepped and draped in the usual sterile fashion. We had injected the methylene blue in four quadrants underneath the left nipple areolar complex. We allowed 5 minutes to pass and then we utilized a standard transverse incision along the inferior edge of the left axillary hairline. This was carried down through the tissues bluntly and with the cautery until we entered the axillary fat. With the help of the Evens counter, then we were able to localize 2 sentinel lymph nodes next to one another and in their usual position. They were both easily removed and passed off the field for pathologic review. The count dropped by over and there were no other lymph nodes noted. Unfortunately, there was no methylene blue in the axilla. The wound was then irrigated and suctioned out until clear. Local anesthetic was injected in the wound. The wound was closed in layers with interrupted 3-0 Monocryl sutures. The skin edges were reapproximated with running 5-0 fast absorbing plain gut suture. After this, we turned our attention to the wire localization. We rechecked the mammograms once again. We could easily see the clip in the specimen. The tip of the wire pass the specimen. We made a curvilinear incision starting at the 6 o'clock position traveling out to the 4 o'clock position with a 15 blade knife. This was carried down and around the wire with the help of the cautery. The lesion was then appropriately marked with silk sutures. The entire specimen was sent off to the radiology department. The lesion and the clip were confirmed to be within the specimen. The wound had been irrigated and suctioned out until clear. We injected local anesthetic into the wound. The wound was closed with interrupted 3-0 subcuticular Monocryl sutures. Skin edges were reapproximated with running 5-0 fast absorbing plain gut suture. Dry gauze and tape were applied to both incisions. Leonor was then awakened from her anesthesia, extubated in the OR, and taken to the recovery room in stable condition. Diaz Bruno MD ALB/MODL /[id number] cc: MD Blanca Guevara PA Electronically Signed By: DIAZ BRUNO MD 10/24/21 0612 PATIENT NAME: ISABEL HOLBROOK OPERATIVE REPORT DATE OF : 57 REPORT #: [id number] PHYSICIAN: DIAZ BRUNO MD PCP: BLANCA SON REPORT IS CONFIDENTIAL AND NOT TO BE RELEASED WITHOUT AUTHORIZATION [address] [address] Signed Copies: DIAZ BRUNO MD, LINDA PA ~ Electronically Signed By: DIAZ BRUNO MD 10/24/21611 PATIENT NAME: ISABEL HOLBROOK OPERATIVE REPORT DATE OF : 57 REPORT #: [id number] PHYSICIAN: DIAZ BRUNO MD PCP: BLANCA SON REPORT IS CONFIDENTIAL AND NOT TO BE RELEASED WITHOUT AUTHORIZATION
--- NOTE | 2021-10-31 16:53 | PATH ---
[facility] [address] [place], [place] [address] Signed SPECIMEN(S): A SENTINEL LYMPH NODE 1 LEFT BREAST SPECIMEN(S): B SENTINEL LYMPH NODE 2 LEFT BREAST SPECIMEN(S): C LEFT BREAST LUMP LOWER OUTER QUAD SPECIMEN SOURCE: A. SENTINEL LYMPH NODE 1 LEFT BREAST B. SENTINEL LYMPH NODE 2 LEFT BREAST C. LEFT BREAST LUMP LOWER OUTER QUAD CLINICAL HISTORY: Left side breast cancer. C50.919 (malignant neoplasm of unspecified site of unspecified female breast) FINAL PATHOLOGIC DIAGNOSIS: A. Ogden lymph node #1, left axilla, excisional biopsy: - One lymph node with no evidence of malignancy (0/1). B. [place] lymph node #2, left axilla, excisional biopsy: - Two lymph nodes with no evidence of malignancy (0/2). C. Breast, left, lower outer quadrant, lumpectomy: - Invasive carcinoma with the following features: - Histologic Type: Invasive mucinous carcinoma. - Tumor Focality: Two foci of invasive carcinoma. - Histologic grade (Dann histologic score): - Glandular (acinar) / tubular differentiation: Score 2. - Nuclear pleomorphism: Score 2. - Mitotic rate: Score 1. - Overall grade: 1 of 3 (total score 5 of 9). - Tumor size: Focus 1: 15 x 12 x 10 mm; Focus 2: Favor 4 mm in greatest dimension. - Ductal carcinoma in situ (DCIS): Present - Positive for extensive intraductal component (EIC). - Size (extent) of DCIS: approximately 49 mm. - Architectural patterns: Solid and micropapillary. - Nuclear grade: Grade 3 (high). - Necrosis: Present, single cell and comedo - Lobular carcinoma in situ (LCIS): Not identified. - Lymphovascular invasion: Not identified. - Microcalcifications: Present in invasive carcinoma, DCIS, and non-neoplastic tissue. - Treatment effect in the breast: No known presurgical therapy. PATIENT NAME: DOMINGA HOLBROOK PATHOLOGY DATE OF : 57 REPORT #: [id number] PHYSICIAN: GABRIELLE MCCARTY PCP: SERJIO SON REPORT IS CONFIDENTIAL AND NOT TO BE RELEASED WITHOUT AUTHORIZATION [facility] [address] [place], [place] [address] Signed - Margins: All margins negative for invasive carcinoma. - Distance from invasive carcinoma to closest margin: 3 mm (inferior margin). - Margins status for DCIS: DCIS favored to be present at superior margin. - Distance from DCIS to next closest margins: less than 1 mm from inferior margin and 1.5 mm from the posterior margin. - Regional lymph nodes: All regional lymph nodes negative for tumor (specimens A and B). - Total number of lymph nodes examined: 3. - Number of sentinel nodes examined: 3. - Additional findings: Fibrocystic changes, focal complex sclerosing lesion, columnar cell change, biopsy site. - Breast biomarker studies: For the larger tumor (focus 1), refer to previously performed testing ([id number]), interpretated as: ER positive, VT positive, HER2 negative for amplification by FISH (equivocal by IHC). - Pathologic stage classification (pTNM, AJCC 8th edition): mpT1c (sn)pN0. COMMENT: An incidental second focus of invasive carcinoma was identified away from the main tumor. The histologic type of the second focus of invasive carcinoma is invasive carcinoma of no special type (ductal). The second focus has an overall Histologic grade (Dann histologic score) of 1 of 3. It is favored to be 4 mm in greatest dimension. Biomarkers studies on this second focus will be reported in an addendum. The DCIS is favored to be at the superior margin in one section. In this section, the epithelial cells at the inked edge are cauterized and cytomorphology is lost, but given the proximity of intact DCIS this is favored to be a positive margin. As part of [employer] Quality improvement program, this case was reviewed by another member of our pathology staff. The findings were discussed with Dr. Grant on 10/29/21. NAL:ana:C1NR MICROSCOPIC EXAMINATION: Histologic sections of all submitted blocks are examined by light microscopy. These findings, together with the gross examination, support the pathologic diagnosis. PATIENT NAME: DOMINGA HOLBROOK PATHOLOGY DATE OF : 57 REPORT #: [id number] PHYSICIAN: GABRIELLE PATHOLOGY PCP: SERJIO SON REPORT IS CONFIDENTIAL AND NOT TO BE RELEASED WITHOUT AUTHORIZATION [facility] [address] [place], [place] [address] Signed Immunohistochemical stains (with appropriately staining controls) were reviewed: Pancytokeratin (AE1/AE3) immunohistochemical stains (with appropriately staining controls) were performed on each sentinel lymph node (A1, B1) and confirmed the absence of metastatic carcinoma. The tumor cells of the second focus of carcinoma demonstrate strong overexpression of estrogen receptor. The second focus of invasive carcinoma is confirmed invasive by the lack of myoepithelial cells as shown with [facility]. NAL:[facility] GROSS DESCRIPTION: Three specimens are received in three containers, labeled "Manjinder." A. The specimen, labeled "Power, A," is received in formalin and consists of a single lymph node (1.0 x 0.6 x 0.5 cm). The specimen is trisected to show a mei unremarkable cut surface. The lymph node is submitted entirely in A1. B. The specimen, labeled "Power, B," is received in formalin and consists of three possible lymph nodes, ranging from 0.4 to 1.0 cm in greatest dimension. The lymph nodes are submitted intact in B1. C. The specimen, labeled "Manjinder, C," is received in formalin and consists of an oriented lumpectomy (6.5 cm anterior to posterior x 5.2 cm medial to lateral x 3.2 cm superior to inferior). The specimen is oriented with a long stitch lateral, short stitch superior, double stitch deep, and a needle localization wire vanegas skin; however, no skin is present on the specimen. The specimen is inked as follows: Blue = superior Green = inferior Black = posterior Yellow = anterior Red = medial Jeannette = lateral The specimen is serially sectioned from posterior to anterior into 12 levels to reveal an ill-defined, mei, firm mass (1.5 x 1.2 x 1.0 cm) within levels 3-5. A biopsy clip is identified within level 4. Grossly the mass is 3 mm from the inferior margin, 8 mm from the medial margin, and greater than 1 cm from the remaining margins. The remaining cut surfaces are composed of yellow, lobulated adipose tissue with no fibrous tissue. Gross photographs are taken. Operating Engineer Apprentice sections (entire mass) are submitted as follows: PATIENT NAME: DOMINGA HOLBROOK PATHOLOGY DATE OF : 57 REPORT #: [id number] PHYSICIAN: GABRIELLE MCCARTY PCP: SERJIO SON REPORT IS CONFIDENTIAL AND NOT TO BE RELEASED WITHOUT AUTHORIZATION [facility] [address] [place], [place] [address] Signed Cassette summary C1- retail wireless sales representative posterior margin, perpendicular C2- level 2, section adjacent to lesion C3-C4 level 3, bisected medial to lateral C5-C6 level 4, bisected medial to lateral C7- level 5 mass C8- level 6, adjacent to mass C9- retail wireless sales representative anterior margin Cold ischemic time: Cannot be calculated due to insufficient information Tissue removed from patient: 10/23/2021 1:45 PM Due to insufficient information on the requisition, it is assumed that the specimen is fixed in formalin for at least 12 hours. KD (under the direct supervision of a pathologist) Additional sections are submitted as follows at the request of Dr. Ruiz: C10-C12 remainder of posterior margin, slice one, serially sectioned C13 remainder of slice 2 C14-C17 remainder of slice 5 (C 16 and C 17 are sectioned piece bisected) C18-C21 slice 7, fibrous tissue C 22-C23 slice 8, fibrous tissue AC (under the direct supervision of a pathologist) Additional sections are submitted as follows at the request of Dr. Ruiz: (C 24-C 26) remainder of slice 8 (C 27- C32) slice 9 (C27 and C28, and C29 and C30 are each one area bisected) (C 33-C 34) slice 10 fibrous areas (C 35-C 36) slice 11, fibrous area AC (under the direct supervision of a pathologist) The Gross Description was prepared using a voice recognition system. The report was reviewed for accuracy; however, sound-alike word errors, addition and/or deletions may occur. If there is any question about this report, please contact Client Services. ADDITIONAL NOTES: Immunohistochemical and/or in situ hybridization studies were performed on this case with the appropriate positive controls that react as expected. This test was developed and its performance characteristics determined by [facility]. It has not been cleared or approved by the U.S. Food and Drug Administration. The FDA has determined that such clearance or approval is not necessary. This test is used for clinical purposes. It should not be regarded as investigational or for research. [facility] is certified under the PATIENT NAME: DOMINGA HOLBROOK PATHOLOGY DATE OF : 57 REPORT #: [id number] PHYSICIAN: GABRIELLE MCCARTY PCP: SERJIO SON REPORT IS CONFIDENTIAL AND NOT TO BE RELEASED WITHOUT AUTHORIZATION [facility] [address] [place], [place] [address] Signed Clinical Laboratory Improvement Amendments of 1988 (CLIA) as qualified to perform high complexity clinical laboratory testing. This assay has not been validated for specimens that have been decalcified. PERFORMING LABORATORY: The technical component was performed by [facility], [address] [place] [id number] (CLIA# [id number]). [facility] [address] [facility] [address] [address] (IA# [id number]). Diagnostician: Marni Ruiz MD Pathologist Electronically Signed 10/31/2021 Copies: ~ PATIENT NAME: DOMINGA HOLBROOK PATHOLOGY DATE OF : 57 REPORT #: [id number] PHYSICIAN: GABRIELLE MCCARTY PCP: SERJIO SON REPORT IS CONFIDENTIAL AND NOT TO BE RELEASED WITHOUT AUTHORIZATION
== END 2021-10-23 16:20 | disposition home or self-care (01) ==
LOC: DS 07:00 → US 08:00 → DS 08:00 → EDSTATUS 08:00 → DS 16:20
PROVIDERS: ATTEND Colon & Rectal Surgery
PROC: 0HBY0ZZ Excision of Supernumerary Breast, Open Approach (ICD-10-PCS; principal; 2021-10-23 12:00)
DX: C50.512 Malignant neoplasm of lower-outer quadrant of left female breast (principal); M19.90 Unspecified osteoarthritis, unspecified site; Z80.3 Family history of malignant neoplasm of breast; Z80.8 Family history of malignant neoplasm of other organs or systems; Z17.0 Estrogen receptor positive status [ER+]
CPT/HCPCS: 00400; 19285; 76098; 77065; 78195; A9541; J0690; J1100; J1644; J1885; J2250; J2405; J2704; J2765; J3010; J7121; Q9968

== ENCOUNTER 2021-12-06 08:28 | Day surgery (SDC) | payer MEDICARE, OTHER ==
[~2021-12-06] VITALS: Ht 172.7 cm; Wt 85.3 kg
[~2021-12-06 08:28] MED LIST changes: +HYDROCODON-ACE1 EAC8 PO
--- NOTE | 2021-12-06 12:34 | NUR ---
12/06/21 1234 Gia Herr 1228 PATIENT ARRIVES TO PACU UNRESPONSIVE TO PAIN. ORAL AIRWAY IN PLACE. ALSO REQUIRES JAW THRUST TO MAINTAIN PATENT AIRWAY. RESP EVEN AND UNLABORED WITH INTERVENTION. OXYGEN AT 6 LITERS.
--- NOTE | 2021-12-06 13:05 | NUR ---
1305-PATIENT BACK TO ROOM FROM PACU ON RA. RECEIVED REPORT FROM GAGE EUGENE. PATIENT IS DROWSY AND FALLS ASLEEP EASY. RESP EVEN AND UNLABORED. O2 SATS FROM 89%-95% ON RA. ENCOURAGED PATIENT TO COUGH AND TAKE DEEP BREATHS. DRESSING IS CLEAN, DRY, AND INTACT. ICE PACK IN PLACE. CALL LIGHT WITHIN REACH.
--- NOTE | 2021-12-06 13:28 | NUR ---
O2 SATS DECREASES TO 88%-92% ON RA WHEN PATIENT FALLS ASLEEP. O2 STARTED AT 2L VIA NC. O2 NOW IN LOW 90'S.
--- NOTE | 2021-12-06 13:44 | OR ---
[facility] [address] [place], [place] [address] Signed DATE OF OPERATION: 12/06/2021 SURGEON: Diaz Bruno MD PREOPERATIVE DIAGNOSES: 1. Left lower quadrant breast cancer with multifocal DCIS. 2. Negative MRI for multicentric DCIS. POSTOPERATIVE DIAGNOSES: 1. Left lower quadrant breast cancer with multifocal DCIS. 2. Negative MRI for multicentric DCIS. PROCEDURE: Re-excision left lower quadrant breast lumpectomy site. ESTIMATED BLOOD LOSS: None. INDICATIONS: Isabel is a 65-year-old female, who came to us about six weeks ago for her needle localization left lower quadrant breast lumpectomy and sentinel lymph node biopsy. The sentinel lymph nodes were unremarkable. She indeed had cancer confirmed from her needle biopsy and also has multifocal DCIS with close margins. We had sent her for MRI of both breasts in that regard. The left breast and right breast were unremarkable. She therefore presents today for re-excision with wider margins of the left breast lumpectomy site. She understands with multicentric DCIS, it would require simple completion mastectomy. If indeed these margins are concerning, that would be her next step. I had met with Isabel and her in the office now on several occasions. She has been healing up very nicely with an excellent cosmetic result. We have gone over breast cancer and ductal carcinoma in situ in great detail. We have reviewed the difference between multifocal lesions and multicentric lesions. We also had reviewed her MRI in detail. She presents now for re-excision of the left breast lumpectomy site. She understands there is risk to surgery including, but not limited to bleeding, infection, scarring, change in contour of the skin as well as possible need for additional surgery and/or treatments. She had expressed understanding and wished to proceed. DESCRIPTION OF PROCEDURE: I met with Isabel in our preop area. Her had gone home as it was getting later in the morning. With a nurse present then, we all agreed on the incision in the left Electronically Signed By: DIAZ BRUNO MD 12/06/21 1344 PATIENT NAME: ISABEL HOLBROOK OPERATIVE REPORT DATE OF : 57 REPORT #: [id number] PHYSICIAN: DIAZ BRUNO MD PCP: BLANCA SON REPORT IS CONFIDENTIAL AND NOT TO BE RELEASED WITHOUT AUTHORIZATION [facility] [address] [place] [phone] Signed lower quadrant of the outer breast. We marked that appropriately. After this, Isabel was taken into the operating room and placed in the supine position under general LMA anesthesia. She was given preoperative antibiotics along with subcutaneous heparin. SCDs were utilized. She was prepped and draped in the usual sterile fashion. We used our elliptical incision to include the previous incision. We then went down and around the entire lumpectomy cavity with the help of the cautery about a cm on all sides circumferentially. This took us right down next to the chest wall. The entire specimen was taken out en bloc. Specimen was appropriately marked with silk sutures. The wound was then infiltrated with local anesthetic. The wound was irrigated and suctioned out until clear. We then closed the skin and dermis with interrupted 3-0 subcuticular Monocryl sutures. The skin edges were reapproximated with a running 5-0 fast absorbing plain gut suture. Dry gauze and tape were then applied. After this, Isabel was awakened from anesthesia, extubated in the OR, and taken to recovery room in stable condition. Diaz Bruno MD ALB/MODL /[id number] cc: MD Blanca Guevara PA Copies: DIAZ BRUNO MD, LINDA PA ~ Electronically Signed By: DIAZ BRUNO MD 12/06/21 1344 PATIENT NAME: ISABEL HOLBROOK OPERATIVE REPORT DATE OF : 57 REPORT #: [id number] PHYSICIAN: DIAZ BRUNO MD PCP: BLANCA SON REPORT IS CONFIDENTIAL AND NOT TO BE RELEASED WITHOUT AUTHORIZATION
--- NOTE | 2021-12-06 14:10 | NUR ---
PATIENT DROWSY. RESP EVEN AND UNLABORED. O2 SATS IN THE UPPER 90'S ON 2L VIA NC. VSS. PATIENT DENIES PAIN AND NAUSEA. DRESSING IS CLEAN, DRY, AND INTACT. ICE PACK IN PLACE. CALL LIGHT WITHIN REACH.
--- NOTE | 2021-12-06 14:40 | NUR ---
1440-O2 TITRATED OFF. O2 SATS IN THE UPPER TO HIGH 90'S ON RA. RESP EVEN AND UNLABORED.
--- NOTE | 2021-12-06 14:50 | NUR ---
1450-PATIENT UP TO RESTROOM. GAIT STEADY AND TOLERATED WELL. PATEINT VOIDED 1000ML OF YELLOW URINE. 1455-PATIENT BACK TO ROOM. O2 SATS IN THE MID TO UPPER 90'S. PATIENT GETTING DRESSED AND READY TO GO HOME. 1505-PROVIDED PATIENT WITH DISCHARGE INSTRUCTIONS. ALL QUESTIONS ANSWERED. PATIENT AMBULATES TO WHEELCHAIR. GAIT STEADY. RIDE PROVIDED TO FRONT OF HOSPITAL WHERE WAS WAITING.
--- NOTE | 2021-12-12 11:05 | PATH ---
[facility] [address], [place] [address] Signed SPECIMEN(S): A LEFT BREAST LUMPECTOMY LLQ SPECIMEN SOURCE: A. LEFT BREAST LUMPECTOMY LLQ CLINICAL HISTORY: Left breast ductal carcinoma. 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 - Fibrocystic changes with atypical duct hyperplasia, free of the inked surgical margins. 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 - Sclerosing adenosis. - Negative for residual invasive carcinoma. - Extensive biopsy site changes. - Benign skin. COMMENT: As part of [facility] Quality Improvement Program, this case was reviewed by another member of our pathology staff. JVR:ALIA:mfr:[id number] MICROSCOPIC EXAMINATION: Immunostains are performed with appropriate controls on block A9 and show the following: - Smooth muscle myosin: Positive in area of concern. - Cytokeratin 5/6: Negative in cells of concern. GROSS DESCRIPTION: The specimen, labeled "power, left breast lumpectomy as per the requisition," is received in formalin and consists of an oriented breast excision (7.1 cm medial to lateral by 6.1 cm anterior to posterior by 2.7 cm superior to inferior) with an attached anterior skin PATIENT NAME: DOMINGA HOLBROOK PATHOLOGY DATE OF : 57 REPORT #: [id number] PHYSICIAN: GABRIELLE PATHOLOGY PCP: SERJIO SON REPORT IS CONFIDENTIAL AND NOT TO BE RELEASED WITHOUT AUTHORIZATION [facility] [address], [place] [address] Signed ellipse (4.7 x 0.7 cm). The ellipse has a well-healed linear scar (approximately 2.6 cm in length by 0.1 cm diameter). The specimen is oriented with a short stitch skin, long stitch lateral, double stitch deep, and is inked as follows: Blue = superior Green = inferior Black = posterior Yellow = anterior Red = medial Rosser = lateral The specimen is previously opened at the medial aspect and shows a capsule surrounded by mei, yellow, necrotic membranous tissue. The specimen is serially sectioned from medial to lateral into 15 levels. The surrounding adipose tissue of the capsule is filled with yellow necrotic. The specimen is submitted entirely as follows: Cassette summary A1-A3 medial margin, perpendicular A4-A5 level 2, bisected A6-A7 level 3, bisected A8-A9 level 4, bisected A10-A11 level 5, superior half bisected anterior to posterior A12-A13 level 5, inferior half, bisected anterior to posterior A14-A15 level 6, superior half, bisected anterior to posterior A16-A17 level 6, inferior half, bisected anterior to posterior A18-A19 level 7, superior half bisected anterior to posterior A20-A21 level 7, inferior half bisected anterior to posterior A22-A23 level 8, superior half bisected anterior to posterior A24-A25 level 8, inferior half bisected anterior to posterior A26-A27 level 9, superior half bisected anterior to posterior A28-A29 level 9, inferior half bisected anterior to posterior A30-A31 level 10, superior half bisected anterior to posterior A32-A33 level 10, inferior half bisected anterior to posterior A34-A35 level 11, superior half bisected anterior to posterior A36-A37 level 11, inferior half bisected anterior to posterior A38 level 12, superior half bisected A39-A40 level 12, inferior half bisected anterior to posterior A41-A42 level 13, superior half bisected anterior to posterior A43-A44 level 13, inferior half bisected anterior to posterior A45-A46 level 14, superior half bisected anterior to posterior A47-A48 level 14, inferior half bisected anterior to posterior PATIENT NAME: DOMINGA HOLBROOK PATHOLOGY DATE OF : 57 REPORT #: [id number] PHYSICIAN: GABRIELLE PATHOLOGY PCP: SERJIO SON REPORT IS CONFIDENTIAL AND NOT TO BE RELEASED WITHOUT AUTHORIZATION [address] [address] Signed A49-A53 lateral margin, perpendicular Cold ischemic time: Two minutes The specimen was fixed in formalin for approximately 72 hours. KD (under the direct supervision of a pathologist) The Gross Description was prepared using a voice recognition system. The report was reviewed for accuracy; however, sound-alike word errors, addition and/or deletions may occur. If there is any question about this report, please contact Client Services. ADDITIONAL NOTES: Immunohistochemical and/or in situ hybridization studies were performed on this case with the appropriate positive controls that react as expected. This test was developed and its performance characteristics determined by [facility] It has not been cleared or approved by the U.S. Food and Drug Administration. The FDA has determined that such clearance or approval is not necessary. This test is used for clinical purposes. It should not be regarded as investigational or for research. [facility] is certified under the Clinical Laboratory Improvement Amendments of 1988 (CLIA) as qualified to perform high complexity clinical laboratory testing. This assay has not been validated for specimens that have been decalcified. PERFORMING LABORATORY: The technical component was performed by [facility] [address] [place] [address] (CLIA# [id number]). Professional interpretation was performed by [facility], [address] [place] [id number] (CLIA#: [id number]). Diagnostician: Joseph Rockwell MD Pathologist Electronically Signed 12/12/2021 Copies: ~ PATIENT NAME: DOMINGA HOLBROOK PATHOLOGY DATE OF : 57 REPORT #: [id number] PHYSICIAN: GABRIELLE MCCARTY PCP: SERJIO SON REPORT IS CONFIDENTIAL AND NOT TO BE RELEASED WITHOUT AUTHORIZATION
== END 2021-12-06 15:05 | disposition home or self-care (01) ==
LOC: DS 08:28
PROVIDERS: ATTEND Colon & Rectal Surgery
PROC: 0HBU0ZZ Excision of Left Breast, Open Approach (ICD-10-PCS; principal; 2021-12-06 10:10)
DX: D05.82 Other specified type of carcinoma in situ of left breast (principal); N60.22 Fibroadenosis of left breast
CPT/HCPCS: J0131; J1100; J1644; J1885; J2250; J2405; J2704; J2765; J3010; J7121